=== PATIENT | female | born 1990 | race African-American/Black ===

== ENCOUNTER 2016-12-01 10:34 | Emergency (ER) | payer OTHER ==
--- NOTE | 2016-12-01 10:44 | ER Document Report ---
ED Medical Screen (RME) - General Stated Complaint: PANIC ATTACK Mode of Arrival: Ambulatory Information source: Patient Notes: Patient presents to the emergency department with reports of panic attack. She reports she had a panic attack because of who she was working with. She works at [employer]. Reports history of panic attacks but reports this one was not as bad as she's had it before. Reports her legs are burning. Also feels like her heart is racing. Feels like she could punch co worker in the face but denies SI/HI. I have greeted and performed a rapid initial assessment of this patient. A comprehensive ED assessment and evaluation of the patient, analysis of test results and completion of the medical decision making process will be conducted by additional ED providers. TRAVEL OUTSIDE OF THE [place] IN LAST 30 DAYS: No - Related Data Allergies/Adverse Reactions: haloperidol [From Haldol] Allergy (Verified 02/20/15 20:47) loses time. haloperidol lactate [From Haldol] Allergy (Verified 02/20/15 20:47) loses time. zolpidem tartrate [From Ambien] Adverse Reaction (Verified 02/20/15 20:46) sleep walks Past Medical History Psychiatric Medical History: Reports: Hx Anxiety, Hx Bipolar Disorder, Hx Depression - anxiety, Hx Schizophrenia - Immunizations Immunizations up to date: Yes Hx Diphtheria, Pertussis, Tetanus Vaccination: Yes - unknown Physical Exam - Vital signs Vitals: Temp Pulse Resp BP Pulse Ox 98.1 F 79 20 106/69 99 12/01/16 10:39 12/01/16 10:39 12/01/16 10:39 12/01/16 10:39 12/01/16 10:39 Course - Vital Signs Vital signs: Temp Pulse Resp BP Pulse Ox 98.1 F 79 20 106/69 99 12/01/16 10:39 12/01/16 10:39 12/01/16 10:39 12/01/16 10:39 12/01/16 10:39
--- NOTE | 2016-12-01 11:48 | ER Document Report ---
HPI - HPI Patient complains to provider of: anxiety attack Onset: This afternoon Onset/Duration: Better Pain Level: 3 Context: Patient states that she was at work and got into an argument with another staff member. Patient states that this triggered her to have an anxiety attack. Patient states that she has some leg cramping and became very anxious. Patient states initially she was short of breath. Patient now states that she feels better. Patient is requesting a prescription for something to take for anxiety as she know she has to work with this person in the future. Patient does have a history of anxiety, bipolar and schizophrenia [place] Associated Symptoms: Other - Leg cramping Exacerbated by: Denies Relieved by: Denies Similar symptoms previously: No Recently seen / treated by doctor: Yes - anxiety attack - ROS ROS below otherwise negative: Yes Systems Reviewed and Negative: Yes All other systems reviewed and negative - CONSTITUTIONAL Constitutional: DENIES: Fever, Chills - NEURO Neurology: DENIES: Headache - CARDIOVASCULAR Cardiovascular: DENIES: Chest pain - RESPIRATORY Respiratory: DENIES: Coughing - GASTROINTESTINAL Gastrointestinal: DENIES: Patient vomiting - REPRODUCTIVE Reproductive: DENIES: : - MUSCULOSKELETAL Musculoskeletal: REPORTS: Extremity pain - DERM Skin Color: Normal Skin Problems: None - Leg cramping Past Medical History - General Information source: Patient - Social History Smoking Status: Current Every Day Smoker Chew tobacco use (# tins/day): No Frequency of alcohol use: Occasional Drug Abuse: None Occupation: elementary assistant teacher Family History: Hypertension, Other Patient has suicidal ideation: No Patient has homicidal ideation: No Renal/ Medical History: Denies: Hx Peritoneal Dialysis Psychiatric Medical History: Reports: Hx Anxiety, Hx Bipolar Disorder, Hx Depression - anxiety, Hx Schizophrenia Surgical Hx: Negative - Immunizations Immunizations up to date: Yes Hx Diphtheria, Pertussis, Tetanus Vaccination: Yes - unknown Vertical Provider Document - CONSTITUTIONAL Agree With Documented VS: Yes Exam Limitations: No Limitations General Appearance: WD/WN, No Apparent Distress - INFECTION CONTROL TRAVEL OUTSIDE OF THE [place] IN LAST 30 DAYS: No - HEENT HEENT: Atraumatic, Normal ENT Exam, Normocephalic, PERRLA - NECK Neck: Normal Inspection, Supple - RESPIRATORY Respiratory: Breath Sounds Normal, No Respiratory Distress, Chest Non-Tender O2 Sat by Pulse Oximetry: 99 - CARDIOVASCULAR Cardiovascular: Regular Rate, Regular Rhythm, No Murmur - GI/ABDOMEN Gastrointestinal: Abdomen Soft, Abdomen Non-Tender - BACK Back: Normal Inspection. negative: CVA Tenderness-Right, CVA Tenderness-Left - MUSCULOSKELETAL/EXTREMETIES Musculoskeletal/Extremeties: RICK MATHEW - NEURO Level of Consciousness: Awake, Alert, Appropriate Motor/Sensory: No Motor Deficit - DERM Integumentary: Warm, Dry, No Rash Course - Re-evaluation Re-evalutation: 12/01/[address] Ramey regarding patient's management. Does not advise giving patient a prescription for anxiety medication. Recommends having patient follow up with her primary doctor to address her mental health medications. No concern for PE, DVT or any cardiac pathology at this time. - Vital Signs Vital signs: Temp Pulse Resp BP Pulse Ox 98.1 F 79 20 106/69 99 12/01/16 10:39 12/01/16 10:39 12/01/16 10:39 12/01/16 10:39 12/01/16 10:39 Discharge - Discharge Clinical Impression: Anxiety attack Condition: Stable Disposition: HOME, SELF-CARE Instructions: Anxiety ([facility]) Additional Instructions: Return immediately for any new or worsening symptoms Followup with your primary care provider, call tomorrow to make a followup appointment Follow-up with your mental health provider for recheck. They can adjust your medications or add something for anxiety if needed. Speak with your sort supervisor about scheduling options to minimize interactions with the employee that she had issues with. Forms: Return to Work Referrals: [facility] [Provider Group] - Follow up in 3-5 days
[2016-12-01 12:04] VITALS: BP 97/65
== END 2016-12-01 12:03 | disposition home or self-care (01) ==
LOC: ER 10:34
DX: F41.9 Anxiety disorder, unspecified (principal); F17.200 Nicotine dependence, unspecified, uncomplicated
CPT/HCPCS: 99283

== ENCOUNTER 2017-03-07 17:26 | Emergency (ER) | payer OTHER ==
[2017-03-07 17:32] VITALS: BP 113/69
--- NOTE | 2017-03-07 18:23 | ER Document Report ---
ED Oral Problem - General Chief Complaint: Bleeding Gums Stated Complaint: GUM/MOUTH PAIN Time Seen by Provider: 03/07/17 17:48 Mode of Arrival: Ambulatory Information source: Patient Notes: 27-year-old female presents to ED for dental infection to her gums around tooth #21. Patient states that she called her dentist who put her on amoxicillin for this abscess to her gum. The dentist told her that she needed to go somewhere and get the abscess opened. She states she could not go to the dentist because she did not have dental insurance. She is 6 weeks and goes to the [facility] for the . TRAVEL OUTSIDE OF THE [place] IN LAST 30 DAYS: No - HPI Patient complains to provider of: Jaw pain - All abscess below tooth #21 Onset: Other - Several days getting worse. Onset: Gradual Quality of pain: Achy, Sharp Severity: Mild Pain Level: 1 Associated symptoms: Other - Dental abscess below tooth #21 Relieved by: Nothing Similar symptoms previously: Yes Recently seen / treated by doctor/dentist: No - Related Data Allergies/Adverse Reactions: haloperidol [From Haldol] Allergy (Verified 03/07/17 17:29) loses time. haloperidol lactate [From Haldol] Allergy (Verified 03/07/17 17:29) loses time. zolpidem tartrate [From Ambien] Adverse Reaction (Verified 03/07/17 17:29) sleep walks Past Medical History - General Information source: Patient - Social History Smoking Status: Current Every Day Smoker Cigarette use (# per day): Yes - 2 cigarettes a day Chew tobacco use (# tins/day): No Smoking Education Provided: Yes - Less than 1 minute Frequency of alcohol use: None Drug Abuse: None Lives with: Alone - living in [place] at this time Family History: Hypertension, Other Patient has suicidal ideation: No Patient has homicidal ideation: No - Past Medical History Cardiac Medical History: Reports: None Pulmonary Medical History: Reports: None EENT Medical History: Reports: None Neurological Medical History: Reports: None Endocrine Medical History: Reports: None Renal/ Medical History: Reports: None Malignancy Medical History: Reports: None GI Medical History: Reports: None Musculoskeltal Medical History: Reports None Psychiatric Medical History: Reports: Hx Anxiety, Hx Bipolar Disorder, Hx Depression - anxiety, Hx Schizophrenia Traumatic Medical History: Reports: None Infectious Medical History: Reports: None Surgical Hx: Negative Past Surgical History: Reports: None - Immunizations Immunizations up to date: Yes Hx Diphtheria, Pertussis, Tetanus Vaccination: Yes - unknown Review of Systems - Review of Systems Constitutional: No symptoms reported EENT: No symptoms reported, Dental problem - small dental abscess Cardiovascular: No symptoms reported Respiratory: No symptoms reported Gastrointestinal: No symptoms reported Genitourinary: No symptoms reported Female Genitourinary: No symptoms reported Musculoskeletal: No symptoms reported Skin: No symptoms reported Hematologic/Lymphatic: No symptoms reported Neurological/Psychological: No symptoms reported Physical Exam - Vital signs Vitals: Temp Pulse Resp BP Pulse Ox 98 F 89 16 113/69 98 03/07/17 17:29 03/07/17 17:29 03/07/17 17:29 03/07/17 17:03/07/17 17:29 Interpretation: Normal - General General appearance: Appears well, Alert - HEENT Head: Normocephalic, Atraumatic Eyes: Normal Pupils: PERRL Ears: Normal External canal: Normal Tympanic membrane: Normal Sinus: Normal Nasal: Normal Mouth/Lips: Normal Mucous membranes: Normal Teeth diagram: 1 - Small dental abscess Pharynx: Normal Neck: Normal - Respiratory Respiratory status: No respiratory distress Chest status: Nontender Breath sounds: Normal Chest palpation: Normal - Cardiovascular Rhythm: Regular Heart sounds: Normal auscultation Murmur: No - Abdominal Inspection: Normal Distension: No distension Bowel sounds: Normal Tenderness: Nontender Organomegaly: No organomegaly - Back Back: Normal, Nontender - Extremities General upper extremity: Normal inspection, Nontender, Normal color, Normal ROM , Normal temperature General lower extremity: Normal inspection, Nontender, Normal color, Normal ROM , Normal temperature, Normal weight bearing. No: Jose Luis's sign - Neurological Neuro grossly intact: Yes Cognition: Normal Orientation: AAOx4 Luís Coma Scale Eye Opening: Spontaneous [place] Coma Scale Verbal: Oriented [place] Coma Scale Motor: Obeys Commands Luís Coma Scale Total: 15 Speech: Normal Motor strength normal: LUE, RUE, LLE, RLE Sensory: Normal - Psychological Associated symptoms: Normal affect, Normal mood - Skin Skin Temperature: Warm Skin Moisture: Dry Skin Color: Normal Course - Vital Signs Vital signs: Temp Pulse Resp BP Pulse Ox 98 F 89 16 113/69 98 03/07/17 17:29 03/07/17 17:29 03/07/17 17:29 03/07/17 17:29 03/07/17 17:29 Procedures - Incision and Drainage Left gum Type: Simple Anesthetic type: Other mL's of anesthetic: 0 Blade size: Other Incision Method: Incision made with needle Amount/type of drainage: moderate Discharge - Discharge Clinical Impression: Dental abscess Condition: Stable Disposition: HOME, SELF-CARE Additional Instructions: ABSCESS: You have an abscess (boil). This a pus-forming infection, usually due to staph. Some boils may be left to drain on their own, but most require lancing. From the time the tender lump first appears, it may be three or four days before the abscess is ready to shaan. Local heat and rest help at this stage of treatment. An antibiotic may prevent spread of the infection. Once the abscess is opened, packing may be placed into it. This is done so pus is not sealed inside by premature closure of the cavity. The packing will be removed at your follow-up visit or you may be advised to remove it yourself at home. Sometimes this packing must be replaced a few times during healing. The wound will heal with surprisingly little scar. Depending on the size and location of an abscess, healing can take one to four weeks. You may shower and wash the area around the incision site two or three times a day. Antibiotics may be prescribed, but are usually not necessary after an abscess has been drained. If you develop fever, chills, worsening pain, or increasing swelling in the area, call the doctor or return immediately. Dental abscess was opened up with an 18-gauge needle and drained. You have garbled several times with water. When you go home I would like for you to gargle with warm salt water 3 times a day for the next several days to ensure this heals up. Take the amoxicillin your dentist well to until it is completed. Follow-up with your [facility] PHYSIC[facility] at [facility] as scheduled. FOLLOW-UP CARE: Most simple abscesses will not require a follow up visit. If you had packing placed in the abscess, remove it as instructed by the physician. If you have been referred to a physician for follow-up care, call the physicians office for an appointment as you were instructed or within the next two days. If you experience worsening or a significant change in your symptoms, return to the Emergency Department at any time for re-evaluation.
== END 2017-03-07 18:38 | disposition home or self-care (01) ==
LOC: ER 17:26
PROC: 0C96XZZ Drainage of Lower Gingiva, External Approach (ICD-10-PCS; principal; 2017-03-07)
DX: O99.611 Diseases of the digestive system complicating pregnancy, first trimester (principal); K04.7 Periapical abscess without sinus; O99.331 Smoking (tobacco) complicating pregnancy, first trimester; F17.210 Nicotine dependence, cigarettes, uncomplicated; Z71.6 Tobacco abuse counseling; Z3A.01 Less than 8 weeks gestation of pregnancy; Z88.8 Allergy status to other drugs, medicaments and biological substances
CPT/HCPCS: 99282

== ENCOUNTER 2017-03-27 18:49 | Emergency (ER) | payer OTHER ==
--- NOTE | 2017-03-27 19:33 | ER Document Report ---
ED Medical Screen (RME) - General Chief Complaint: Vag Bleeding, +preg <12wks Stated Complaint: ABDOMINAL PAIN Time Seen by Provider: 03/27/17 19:28 Notes: Patient presents stating that she is having vaginal bleeding. She states she has had this for 2 days. She states she went to the [facility] 2 days ago when she was having the bleeding and cramping and they told her she may be having a miscarriage. She states that she was confused about what she was told and was unsure whether she was having a miscarriage or not. Patient states the bleeding has become heavier with clots. She also states that the cramping has become worse. She states that she does have chronically low blood pressure. She states this is her first . He said a urine test at the [facility] was negative but then when they did a serum test it was positive. She states she is not sure what the ultrasound at the [facility] showed but she does remember some mention of a yolk sac. TRAVEL OUTSIDE OF THE [place] IN LAST 30 DAYS: No - Related Data Allergies/Adverse Reactions: haloperidol [From Haldol] Allergy (Verified 03/07/17 17:29) loses time. haloperidol lactate [From Haldol] Allergy (Verified 03/07/17 17:29) loses time. zolpidem tartrate [From Ambien] Adverse Reaction (Verified 03/07/17 17:29) sleep walks Past Medical History Renal/ Medical History: Denies: Hx Peritoneal Dialysis Psychiatric Medical History: Reports: Hx Anxiety, Hx Bipolar Disorder, Hx Depression - anxiety, Hx Schizophrenia Surgical Hx: Negative - Immunizations Immunizations up to date: Yes Hx Diphtheria, Pertussis, Tetanus Vaccination: Yes - unknown Physical Exam - Vital signs Vitals: Temp Pulse Resp BP Pulse Ox 98.3 F 94 16 98/72 L 98 03/27/17 18:58 03/27/17 18:58 03/27/17 18:58 03/27/17 18:58 03/27/17 18:58 Course - Vital Signs Vital signs: Temp Pulse Resp BP Pulse Ox 98.3 F 94 16 98/72 L 98 03/27/17 18:58 03/27/17 18:58 03/27/17 18:58 03/27/17 18:58 03/27/17 18:58
[2017-03-27 20:16] LABS: ABSOLUTE BASOPHILS # (AUTO) 0.1 10^3/uL (0.0-0.2); ABSOLUTE EOSINOPHILS # (AUTO) 0.1 10^3/uL (0.0-0.6); ABSOLUTE LYMPHOCYTES (AUTO) 1.8 10^3/uL (0.5-4.7); ABSOLUTE MONOCYTES (AUTO) 0.8 10^3/uL (0.1-1.4); ABSOLUTE NEUT (AUTO) 9.5 10^3/uL (1.7-8.2); BASOPHILS % (AUTO) 0.6 % (0-2); EOSINOPHILS % (AUTO) 0.7 % (0-6); HEMATOCRIT 39.5 % (36.0-47.0); HEMOGLOBIN 12.6 g/dL (12.0-15.5); HGB HCT DIFFERENCE -1.7; LYMPHOCYTES % (AUTO) 14.8 % (13-45); MEAN CORPUSCULAR HEMOGLOBIN 24.6 pg (27.0-33.4); MEAN CORPUSCULAR VOLUME 77 fl (80-97); MONOCYTES % (AUTO) 6.7 % (3-13); RED BLOOD COUNT 5.14 10^6/uL (3.72-5.28); SEGMENTED NEUTROPHILS % (AUTO) 77.2 % (42-78); WHITE BLOOD COUNT 12.3 10^3/uL (4.0-10.5)
[2017-03-27 20:33] LABS: ALANINE AMINOTRANSFERASE 36 U/L (9-52); ALBUMIN 4.1 g/dL (3.5-5.0); ALKALINE PHOSPHATASE 76 U/L (38-126); ANION GAP 9 (5-19); ASPARTATE AMINO TRANSFERASE 26 U/L (14-36); BILIRUBIN,DIRECT 0.2 mg/dL (0.0-0.4); BILIRUBIN,TOTAL 0.3 mg/dL (0.2-1.3); BLOOD UREA NITROGEN 9 mg/dL (7-20); CALCIUM 9.2 mg/dL (8.4-10.2); CARBON DIOXIDE 27 mmol/L (22-30); CHLORIDE 102 mmol/L (98-107); CREATININE RESULT 0.83 mg/dL (0.52-1.25); GLUCOSE 115 mg/dL (75-110); POTASSIUM 4.1 mmol/L (3.6-5.0); TOTAL PROTEIN 7.2 g/dL (6.3-8.2)
--- NOTE | 2017-03-27 20:36 | ER Document Report ---
ED General - General Chief Complaint: Vag Bleeding, +preg <12wks Stated Complaint: ABDOMINAL PAIN Time Seen by Provider: 03/27/17 19:28 Notes: Patient is a 27-year-old female at approximately 9 weeks by LMP who presents with vaginal bleeding and lower abdominal cramping. Patient describes lower abdominal cramping is mild, intermittent. Nothing improves or worsens that pain. The pain has been present for the past 2-3 days. Notes that she has had a small amount of vaginal spotting during that time. 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 She denies any fever or constitutional symptoms. No vomiting although she has been nauseated. TRAVEL OUTSIDE OF THE [place] IN LAST 30 DAYS: No - Related Data Allergies/Adverse Reactions: haloperidol [From Haldol] Allergy (Verified 03/07/17 17:29) loses time. haloperidol lactate [From Haldol] Allergy (Verified 03/07/17 17:29) loses time. zolpidem tartrate [From Ambien] Adverse Reaction (Verified 03/07/17 17:29) sleep walks Past Medical History - General Information source: Patient - Social History Smoking Status: Never Smoker Frequency of alcohol use: None Drug Abuse: None Lives with: Family Family History: Reviewed & Not Pertinent, Hypertension, Other Patient has suicidal ideation: No Patient has homicidal ideation: No Renal/ Medical History: Denies: Hx Peritoneal Dialysis Psychiatric Medical History: Reports: Hx Anxiety, Hx Bipolar Disorder, Hx Depression - anxiety, Hx Schizophrenia Surgical Hx: Negative - Immunizations Immunizations up to date: Yes Hx Diphtheria, Pertussis, Tetanus Vaccination: Yes - unknown Review of Systems - Review of Systems Notes: Constitutional: Negative for fever. HENT: Negative for sore throat. Eyes: Negative for visual changes. Cardiovascular: Negative for chest pain. Respiratory: Negative for shortness of breath. Gastrointestinal: Positive for lower abdominal cramping and nausea Genitourinary: Negative for dysuria. Positive for vaginal bleeding Musculoskeletal: Negative for back pain. Skin: Negative for rash. Neurological: Negative for headaches, weakness or numbness. 10 point ROS negative except as marked above and in HPI. Physical Exam - Vital signs Vitals: Temp Pulse Resp BP Pulse Ox 98.3 F 94 16 98/72 L 98 03/27/17 18:58 03/27/17 18:58 03/27/17 18:58 03/27/17 18:58 03/27/17 18:58 Interpretation: Normal Notes: PHYSICAL EXAMINATION: GENERAL: Well-appearing, well-nourished and in no acute distress. HEAD: Atraumatic, normocephalic. EYES: Pupils equal round and reactive to light, extraocular movements intact, sclera anicteric, conjunctiva are normal. ENT: nares patent, oropharynx clear without exudates. Moist mucous membranes. NECK: Normal range of motion, supple without lymphadenopathy LUNGS: Breath sounds clear to auscultation bilaterally and equal. No wheezes rales or rhonchi. HEART: Regular rate and rhythm without murmurs ABDOMEN: Soft, nontender, normoactive bowel sounds. No guarding, no rebound. No masses appreciated. EXTREMITIES: Normal range of motion, no pitting or edema. No cyanosis. NEUROLOGICAL: No focal neurological deficits. Moves all extremities spontaneously and on command. PSYCH: Normal mood, normal affect. SKIN: Warm, Dry, normal turgor, no rashes or lesions noted. Course - Re-evaluation Re-evalutation: 03/27/17 20:36 Patient presents with a mild amount of vaginal bleeding in the setting of an early first trimester . Transvaginal ultrasound is unable to visualize an intrauterine at this time although possible gestational sac. Quantitative beta hCG below the zone of to margination. No active bleeding at time of presentation. She is Rh positive. Patient's abdominal exam is otherwise benign without any focal tenderness. I do not suspect an acute appendicitis, pyelonephritis, cystitis, or bowel obstruction. At this time I have informed the patient that she needs to return to the emergency department or the women's clinic in 48 hours for recheck of her quantitative beta hCG to assess whether or not this is a normal or a possible ectopic .At this time will discharge with return precautions and follow -up recommendations. Verbal discharge instructions given a the bedside and opportunity for questions given. Medication warnings reviewed. Patient is in agreement with this plan and has verbalized understanding of return precautions and the need for primary care follow-up in the next 24-72 hours. - Vital Signs Vital signs: Temp Pulse Resp BP Pulse Ox 97.5 F 68 14 103/66 99 03/28/17 00:19 03/28/17 00:19 03/28/17 00:19 03/28/17 00:19 03/28/17 00:19 - Laboratory Result Diagrams: 03/27/17 19:40 03/27/17 19:40 Laboratory results interpreted by me: 03/27/17 03/27/17 19:40 19:40 WBC 12.3 H MCV 77 L MCH 24.6 L RDW 15.0 H Absolute Neutrophils 9.5 H Glucose 115 H Beta HCG, Quant 939.84 H - Diagnostic Test Radiology reviewed: Reports reviewed Discharge - Discharge Clinical Impression: First trimester bleeding Condition: Good Disposition: HOME, SELF-CARE Additional Instructions: You need to return to the ED or the women's health clinic in 48 hours for a recheck of your hormone level. The ultrasound is unable to see a fetus at this time because you are too early in your . Please return if you develop severe abdominal pain, bleeding that goes through more than 2 pads for more than 2 hours, pass out, or have any other symptoms that are concerning to you. Please follow-up closely with your OBGYN regarding todays visit.
--- NOTE | 2017-03-27 23:26 | RADIOLOGY REPORT (SQ) ---
EXAM DESCRIPTION: U/S OB TRANSVAGINAL W/O DOP COMPLETED DATE/TIME: 03/27/2017 10:32 pm REASON FOR STUDY: preg bleed, no iup bedside transab COMPARISON: None. TECHNIQUE: Transvaginal static and realtime grayscale images acquired of the pelvis. Additional killian cted spectral and color Doppler images recorded. All images stored on PACs. [email or web address] LIMITATIONS: None. FINDINGS: FETUS: Living intrauterine . EGA: Questionable gestational sac seen within the endometrium with a mean diameter is 0.72cm consist ent with a of 5 weeks and 3 days. Alternatively this could represent a pseudo gestational sac fluid. YANETH: 11/24/2017 FHR: Not applicable. SUBCHORIONIC BLEED: No. SIZE OF BLEED: Not applicable. UTERUS: No masses. No anomalies. CERVICAL LENGTH: Not done RIGHT ADNEXA: Normal ovary with normal vascular flow. No adnexal free fluid. No adnexal masses. LEFT ADNEXA: Normal ovary with normal vascular flow. Possible cortical cyst luteal cyst measuring 1. 1 x 1.6 x 1.0 cm No adnexal free fluid. No adnexal masses. FREE FLUID: None. OTHER: No other significant finding. IMPRESSION: Possible gestational sac seen measuring 0.72 cm. This could also represent a pseudo ges tational sac and free fluid within the uterine cavity. No evidence of ectopic on ultrasoun d. Continued follow-up is recommended with serial beta HCG and repeat ultrasound as necessary. EGA 5 weeks 3 days based on presumed gestational sac. Possible left corpus luteal cyst. Trimester of : First - 0 to 13 weeks. TECHNICAL DOCUMENTATION: JOB ID: [id number]- All Rights Reserved
[2017-03-28 03:06] VITALS: BP 104/67
== END 2017-03-28 00:24 | disposition home or self-care (01) ==
LOC: ER 18:49
DX: O46.91 Antepartum hemorrhage, unspecified, first trimester (principal); Z3A.09 9 weeks gestation of pregnancy; R10.9 Unspecified abdominal pain
CPT/HCPCS: 36415; 76817; 80053; 84702; 85025; 86900; 86901; 99284

== ENCOUNTER 2017-07-05 13:47 | Emergency (ER) | payer OTHER ==
--- NOTE | 2017-07-05 14:27 | ER Document Report ---
HPI - HPI Pain Level: 1 Notes: Patient is a P0 who presents to the ED complaining of vaginal bleeding 1 day. H/o 1 miscarriage about 3-4 months ago. Patient states that this may be the start of her menstrual cycle (as she is regular), but she is using a cup for the first time in lieu of tampons or pads. Patient states that she overflowed the cup this morning after having eaten all night, and switched out twice yesterday. Patient is concerned that this might be too much than what it should be. Patient has no other concerns or complaints at this time. She has not been seen by an CEMENTER MACHINE. She denies any history of clots, bleeding disorder. No other significant PMH per patient. Pt is not on any hormones or control medications. Patient admits to smoking 5-10 cigarettes a day but denies any IV drug use. Denies any headache, fever, URI, sore throat, chest pain, palpitations, syncope, cough, shortness of breath, wheeze, dyspnea, abdominal pain, nausea/vomiting/diarrhea, urinary retention, dysuria, hematuria , or rash. - ROS Notes: REVIEW OF SYSTEMS: CONSTITUTIONAL : Denies fever, chills, or sweats. Denies recent illness. EENT: Denies eye, ear, throat, or mouth pain or symptoms. Denies nasal or sinus congestion or discharge. Denies throat, tongue, or mouth swelling or difficulty swallowing. CARDIOVASCULAR: Denies chest pain. Denies palpitations or racing or irregular heart beat. Denies ankle edema. RESPIRATORY: Denies cough, cold, or chest congestion. Denies shortness of breath, difficulty breathing, or wheezing. GASTROINTESTINAL: Denies abdominal pain or distention. Denies nausea, vomiting , or diarrhea. Denies blood in vomitus, stools, or per rectum. Denies black, tarry stools. Denies constipation. GENITOURINARY: Denies difficulty urinating, painful urination, burning, frequency, blood in urine, or discharge. FEMALE GENITOURINARY: see hpi MUSCULOSKELETAL: Denies back or neck pain or stiffness. Denies joint pain or swelling. SKIN: Denies rash, lesions or sores. NEUROLOGICAL: Denies confusion or altered mental status. Denies passing out or loss of consciousness. Denies dizziness or lightheadedness. Denies headache. Denies weakness or paralysis or loss of use of either side. Denies problems with gait or speech. Denies sensory loss, numbness, or tingling. ALL OTHER SYSTEMS REVIEWED AND NEGATIVE. Dictation was performed using [employer] voice recognition software - REPRODUCTIVE LMP: now Reproductive: DENIES: : - DERM Skin Color: Normal Past Medical History - Social History Smoking Status: Current Every Day Smoker Family History: Reviewed & Not Pertinent, Hypertension, Other Patient has suicidal ideation: No Patient has homicidal ideation: No Renal/ Medical History: Denies: Hx Peritoneal Dialysis Psychiatric Medical History: Reports: Hx Anxiety, Hx Bipolar Disorder, Hx Depression - anxiety, Hx Schizophrenia - Immunizations Immunizations up to date: Yes Hx Diphtheria, Pertussis, Tetanus Vaccination: Yes - unknown Vertical Provider Document - CONSTITUTIONAL Agree With Documented VS: Yes Notes: PHYSICAL EXAMINATION: GENERAL: Well-appearing, well-nourished and in no acute distress. A&Ox4 LUNGS: Breath sounds clear to auscultation bilaterally and equal. No wheezes rales or rhonchi. HEART: Regular rate and rhythm without murmurs, rubs, gallops. ABDOMEN: Soft, nontender, nondistended abdomen. No guarding, no rebound. No masses appreciated. Normal bowel sounds present. No CVA tenderness bilaterally. : deferred Musculoskeletal: FROM to passive/active. Strength 5+/5. Extremities: No cyanosis, clubbing, or edema b/l. Peripheral pulses 2+. Capillary refill less than 3 seconds. NEUROLOGICAL: Normal speech, normal gait. Normal sensory, motor exams PSYCH: Normal mood, normal affect. SKIN: Warm, Dry, normal turgor, no rashes or lesions noted. - INFECTION CONTROL TRAVEL OUTSIDE OF THE [place] IN LAST 30 DAYS: No - RESPIRATORY O2 Sat by Pulse Oximetry: 99 Course - Re-evaluation Re-evalutation: 07/05/17 15:24 Patient is a 27-year-old female who is afebrile and well-hydrated who presents to the ED with what could be typical menstrual bleeding versus dysfunctional uterine bleeding. Vitals are stable. PE is otherwise unremarkable at this time. CBC was unremarkable and she had a negative serum . Patient is utilizing a cup for the first time during her menstrual cycle and was surprised that how much blood there was which made her nervous. Reviewed with patient that this could be typical and that bleeding varies from person to person and from cycle to cycle. No suspicion for any systemic emergent condition at this time. Patient aware to monitor symptoms for any acute changes and seek medical attention if so. Recheck with your PCM in 3-5 days. Consider further evaluation and management with CEMENTER MACHINE with the information provided. Return to the ED with any worsening/concerning symptoms otherwise as reviewed in discharge. Patient is in agreement. - Vital Signs Vital signs: Temp Pulse Resp BP Pulse Ox 98.2 F 96 16 108/80 99 07/05/17 13:57 07/05/17 13:57 07/05/17 13:57 07/05/17 13:57 07/05/17 13:57 - Laboratory Result Diagrams: 07/05/17 14:38 Discharge - Discharge Clinical Impression: Dysfunctional uterine bleeding Condition: Stable Disposition: HOME, SELF-CARE Instructions: Dysfunctional Uterine Bleeding ([facility]) Additional Instructions: He was seen today for vaginal bleeding which may be related to a typical menstrual cycle versus dysfunctional uterine bleeding Your test was negative and you are not severely anemic with normal platelet level Monitor for any worsening symptoms Maintain adequate fluid intake Recheck with your PCM in 3-5 days Schedule an appointment with an CEMENTER MACHINE/women's clinic for further evaluation and management Return to the ED with any worsening symptoms and/or development of fever, headache, chest pain, palpitations, syncope, shortness of breath, trouble breathing, abdominal pain, n/v/d, blood in stool/urine, or other worsening symptoms that are concerning to you. Referrals: [facility] [Provider Group] - Follow up as needed DEL TOLEDO MD [ACTIVE STAFF] - Follow up as needed
[2017-07-05 14:49] LABS: ABSOLUTE BASOPHILS # (AUTO) 0.1 10^3/uL (0.0-0.2); ABSOLUTE EOSINOPHILS # (AUTO) 0.2 10^3/uL (0.0-0.6); ABSOLUTE MONOCYTES (AUTO) 0.6 10^3/uL (0.1-1.4); ABSOLUTE NEUT (AUTO) 5.5 10^3/uL (1.7-8.2); BASOPHILS % (AUTO) 1.3 % (0-2); EOSINOPHILS % (AUTO) 1.8 % (0-6); HEMATOCRIT 37.9 % (36.0-47.0); HEMOGLOBIN 12.6 g/dL (12.0-15.5); HGB HCT DIFFERENCE -0.1; LYMPHOCYTES % (AUTO) 23.6 % (13-45); MEAN CORPUSCULAR HEMOGLOBIN 25.3 pg (27.0-33.4); MEAN CORPUSCULAR HGB CONC 33.4 g/dL (32.0-36.0); MEAN CORPUSCULAR VOLUME 76 fl (80-97); MONOCYTES % (AUTO) 7.2 % (3-13); RED CELL DISTRIBUTION WIDTH 13.3 % (11.5-14.0); SEGMENTED NEUTROPHILS % (AUTO) 66.1 % (42-78); WHITE BLOOD COUNT 8.3 10^3/uL (4.0-10.5)
[2017-07-05 15:37] VITALS: BP 109/73
== END 2017-07-05 15:37 | disposition home or self-care (01) ==
LOC: ER 13:47
DX: N93.8 Other specified abnormal uterine and vaginal bleeding (principal); F17.210 Nicotine dependence, cigarettes, uncomplicated; Z87.59 Personal history of other complications of pregnancy, childbirth and the puerperium
CPT/HCPCS: 36415; 84702; 85025; 99284

== ENCOUNTER 2017-08-31 12:19 | Emergency (ER) | payer OTHER ==
[2017-08-31 12:36] VITALS: BP 118/75
[2017-08-31] MEDS ORDERED: IBUPROFEN 800 MG TABLET PO ONE (13:34)
--- NOTE | 2017-08-31 13:39 | ER Document Report ---
ED Extremity Problem, Lower - General Chief Complaint: Knee Injury Stated Complaint: KNEE PAIN Time Seen by Provider: 08/31/17 13:23 Mode of Arrival: Wheelchair Information source: Patient Notes: 27-year-old girl presents to ED for complaint of her right knee began popped out. She states she has a "trick knee ". She states she cannot walk on this leg at this time. She states she was dancing around and the knee just popped out. She states she has not had anything for pain yet. TRAVEL OUTSIDE OF THE [place] IN LAST 30 DAYS: No - HPI Patient complains to provider of: Pain, Swelling Location: Knee Occurred: This afternoon Where: Home Onset/Duration: Sudden Quality of pain: Achy, Sharp Severity: Moderate Pain Level: 3 Context: Wearing shoes Recent injury: Possibly Associated symptoms: Other Exacerbated by: Movement, Walking Relieved by: Nothing - Related Data Allergies/Adverse Reactions: haloperidol [From Haldol] Allergy (Verified 08/31/17 12:20) loses time. haloperidol lactate [From Haldol] Allergy (Verified 08/31/17 12:20) loses time. zolpidem tartrate [From Ambien] Adverse Reaction (Verified 08/31/17 12:20) sleep walks Past Medical History - General Information source: Patient - Social History Smoking Status: Current Every Day Smoker Cigarette use (# per day): Yes Chew tobacco use (# tins/day): No Smoking Education Provided: Yes - 3 min Frequency of alcohol use: Heavy Drug Abuse: None Occupation: none Lives with: Alone Family History: Arthritis, DM, Hyperlipidemia, Hypertension, Other. denies: CAD , COPD, CVA, Malignancy, Thyroid Disfunction Patient has suicidal ideation: No Patient has homicidal ideation: No - Past Medical History Cardiac Medical History: Reports: None Pulmonary Medical History: Reports: None EENT Medical History: Reports: None Neurological Medical History: Reports: None Endocrine Medical History: Reports: None Renal/ Medical History: Reports: None. Denies: Hx Peritoneal Dialysis Malignancy Medical History: Reports: None GI Medical History: Reports: None Musculoskeltal Medical History: Reports Hx Musculoskeletal Deformity Skin Medical History: Reports None Psychiatric Medical History: Reports: Hx Anxiety, Hx Bipolar Disorder, Hx Depression, Hx Post Traumatic Stress Disorder, Hx Schizophrenia Traumatic Medical History: Reports: None Infectious Medical History: Reports: None Surgical Hx: Negative Past Surgical History: Reports: None - Immunizations Immunizations up to date: Yes Hx Diphtheria, Pertussis, Tetanus Vaccination: Yes - unknown Review of Systems - Review of Systems Constitutional: No symptoms reported EENT: No symptoms reported Cardiovascular: No symptoms reported Respiratory: No symptoms reported Gastrointestinal: No symptoms reported Genitourinary: No symptoms reported Female Genitourinary: No symptoms reported Musculoskeletal: Joint pain - right. denies: Joint swelling Skin: No symptoms reported Hematologic/Lymphatic: No symptoms reported Neurological/Psychological: No symptoms reported Physical Exam - Vital signs Vitals: Temp Pulse Resp BP Pulse Ox 98.3 F 97 16 118/75 98 08/31/17 12:35 08/31/17 12:35 08/31/17 12:35 08/31/17 12:35 08/31/17 12:35 Interpretation: Normal - General General appearance: Appears well, Alert - HEENT Head: Normocephalic, Atraumatic Eyes: Normal Pupils: PERRL - Respiratory Respiratory status: No respiratory distress Chest status: Nontender Breath sounds: Normal Chest palpation: Normal - Cardiovascular Rhythm: Regular Heart sounds: Normal auscultation Murmur: No - Abdominal Inspection: Normal Distension: No distension Bowel sounds: Normal Tenderness: Nontender Organomegaly: No organomegaly - Back Back: Normal, Nontender - Extremities General upper extremity: Normal inspection, Nontender, Normal color, Normal ROM , Normal temperature General lower extremity: Normal inspection, Normal color, Normal temperature. No: Jose Luis's sign Knee: Tender, Pain with ROM, Patellar tendon intact, Tender joint line, Unable to bear weight. No: Abrasion, Deformity, Dislocation, Drawer's test instability , Ecchymosis, Instability, Joint effusion, Laceration, Laxity with valgus stress , Laxity with varus stress, Popliteal fossa tender - Neurological Neuro grossly intact: Yes Cognition: Normal Orientation: AAOx4 Hayes Coma Scale Eye Opening: Spontaneous Luís Coma Scale Verbal: Oriented Hayes Coma Scale Motor: Obeys Commands Luís Coma Scale Total: 15 Speech: Normal Motor strength normal: LUE, RUE, LLE, RLE Sensory: Normal - Psychological Associated symptoms: Normal affect, Normal mood - Skin Skin Temperature: Warm Skin Moisture: Dry Skin Color: Normal Course - Re-evaluation Re-evalutation: 08/31/17 21:29 Patient was discharged in 1413 after receiving a knee immobilizer and crutches for her knee pain. X-rays were discussed with patient and written reports given to patient follow-up with orthopedics. - Vital Signs Vital signs: Temp Pulse Resp BP Pulse Ox 98.3 F 97 16 118/75 98 08/31/17 12:35 08/31/17 12:35 08/31/17 12:35 08/31/17 12:35 08/31/17 12:35 - Diagnostic Test Radiology reviewed: Image reviewed, Reports reviewed Procedures - Immobilization Right Knee Time completed: 14:15 Immobilizer type: Crutches, Knee immobilizer Performed by: PCT Post-Proc Neuro Vasc Exam: Normal Alignment checked and good: Yes Discharge - Discharge Clinical Impression: Knee pain, acute Qualifiers: Laterality: right Qualified Code(s): M25.561 - Pain in right knee Condition: Stable Disposition: HOME, SELF-CARE Additional Instructions: SUSPECTED INTERNAL KNEE INJURY: The examiner of your injured knee suspects an internal injury to the cartilage or internal ligaments. This must be further investigated by an crisis intervention specialist. The knee should be protected, ice packed, and elevated while awaiting your follow-up exam by the orthopedist. If there is severe swelling, severe pain, or any new symptoms while awaiting your exam, you should call the orthopedist. (If he/she is unavailable, call us or return for re-examination.) KNEE IMMOBILIZING SPLINT: The knee immobilizing splint will protect the injury while healing begins. This type of splint does not allow the knee to bend at all. No running or sports will be possible. If the splint allows painfree walking, it's giving adequate protection. If there is still significant pain, crutches may be needed as well. Don't do anything that hurts. Adjusted the splint, if necessary. The stiffeners on the sides are attached with Velcro, so they can be easily moved to adjust for thigh and calf size. If you need help with these adjustments, come back. You will lose muscle strength in the thigh while using this splint. The doctor will advise you if it's safe to do isometric knee exercises while you use it. USE OF CRUTCHES: The doctor has recommended that you not bear weight at this time. You will need to use crutches. Adjust the crutches so the tops come to about two inches under the armpit while you are standing upright. Use your hands -- not your armpits -- to support your weight. To get into a chair, support yourself with one crutch on the injured side. Hold the chair with the other hand, then lower yourself while putting all your weight on the good leg. Going up stairs is `good leg up, step up, then bring up crutches and bad leg.' Down stairs is `bad leg and crutches down, then bring good leg down.' If you develop numbness or swelling in an arm or hand, you are using the crutches incorrectly. Return if you are having any problems with the crutches. ICE & ELEVATION: Apply ice packs frequently against the painful area. Many different schedules are recommended, such as "20 minutes on, 20 minutes off" or "one hour ice, two hours rest." If you need to work, you may need to go longer between ice treatments. You should plan to have the area ice packed AT LEAST one- fourth of the time. The ice should be applied over the wrap, tape, or splint, or over a layer of cloth -- not directly against the skin. Some ice bags have a built-in cloth and can be put directly on the skin. Your injured part should be elevated as much as possible over the next 48 hours. Try to keep the injury above the level of the heart. Avoid use of the injured area. Elevation and rest will decrease the swelling. USE OF [id number] IBUPROFEN: Ibuprofen (Advil, Nuprin, Medipren, Motrin IB) is a medication for fever and pain control. In addition, it has anti- inflammatory effects which may be beneficial, especially in the treatment of injuries. It's best to take ibuprofen with food. Persons with ulcer disease or allergy to aspirin should notify their physician of this before taking ibuprofen. Ibuprofen can be given every four to six hours, for a total of four doses daily. Age Pain or fever dose Antiinflammatory dose 6-8 yr 200 mg (1 tab) 200 mg (1 tab) 9-11 yr 200 mg (1 tab) 200-400 mg (1-2 tab) 11-14 yr 200-400 mg (1-2 tab) 400 mg (2 tab) 15-adult 400 mg (2 tab) 600 mg (3 tab) FOLLOW-UP CARE: If you have been referred to a physician for follow-up care, call the physician s office for an appointment as you were instructed or within the next two days. If you experience worsening or a significant change in your symptoms, notify the physician immediately or return to the Emergency Department at any time for re-evaluation. Forms: Smoking Cessation Education Referrals: WYATT GREGORIO DO [ACTIVE STAFF] - Follow up as needed
--- NOTE | 2017-08-31 13:57 | RADIOLOGY REPORT (SQ) ---
EXAM DESCRIPTION: KNEE RIGHT 4 VIEWS COMPLETED DATE/TIME: 08/31/2017 1:49 pm REASON FOR STUDY: pain states Has "Trick Knee" COMPARISON: None. NUMBER OF VIEWS: Four views. TECHNIQUE: AP, lateral, and both oblique radiographic images acquired of the right knee. LIMITATIONS: None. FINDINGS: MINERALIZATION: Normal. BONES: No acute fracture or dislocation. No worrisome bone lesions. JOINT: No effusion. SOFT TISSUES: No soft tissue swelling. No radio-opaque foreign body. OTHER: No other significant finding. IMPRESSION: NEGATIVE STUDY OF THE RIGHT KNEE. NO RADIOGRAPHIC EVIDENCE OF ACUTE INJURY. TECHNICAL DOCUMENTATION: JOB ID: [id number] [employer]- All Rights Reserved
== END 2017-08-31 14:20 | disposition home or self-care (01) ==
LOC: ER 12:19
DX: M25.561 Pain in right knee (principal); F17.210 Nicotine dependence, cigarettes, uncomplicated; Z71.6 Tobacco abuse counseling; Z88.8 Allergy status to other drugs, medicaments and biological substances
CPT/HCPCS: 99283; 73564; L1830

== ENCOUNTER 2018-01-10 17:17 | Emergency (ER) | payer OTHER ==
--- NOTE | 2018-01-10 18:00 | ER Document Report ---
ED Medical Screen (RME) - General Chief Complaint: Psych Problem Stated Complaint: BODY PAIN, FEVER,HALLUCINATIONS,CHILLS Time Seen by Provider: 01/10/18 17:54 Notes: 28-year-old schizophrenic patient comes emergency room complaining of back pain , possible fevers chills and worsening visual and auditory hallucinations. She has been off her medications for a few days now. She states that she has run out of her medication and cannot afford to go see her doctors over at [facility]. Her chart indicates she has retired so social service consult may be needed to sort out what her healthcare coverage is at this time. I have greeted and performed a rapid initial assessment of this patient. A comprehensive ED assessment and evaluation of the patient, analysis of test results and completion of the medical decision making process will be conducted by additional ED providers. TRAVEL OUTSIDE OF THE [place] IN LAST 30 DAYS: No - Related Data Allergies/Adverse Reactions: haloperidol [From Haldol] Allergy (Verified 01/10/18 17:53) loses time. haloperidol lactate [From Haldol] Allergy (Verified 01/10/18 17:53) loses time. zolpidem tartrate [From Ambien] Adverse Reaction (Verified 01/10/18 17:53) sleep walks Past Medical History - Social History Chew tobacco use (# tins/day): No Frequency of alcohol use: None Drug Abuse: None Renal/ Medical History: Denies: Hx Peritoneal Dialysis Musculoskeltal Medical History: Reports Hx Musculoskeletal Deformity Psychiatric Medical History: Reports: Hx Anxiety, Hx Bipolar Disorder, Hx Depression, Hx Post Traumatic Stress Disorder, Hx Schizophrenia - Immunizations Immunizations up to date: Yes Hx Diphtheria, Pertussis, Tetanus Vaccination: Yes - unknown History of Influenza Vaccine for 06/2017 - 11/2017 Season: No Physical Exam - Vital signs Vitals: Temp Pulse Resp BP Pulse Ox 98.9 F 98 16 106/61 96 01/10/18 17:36 01/10/18 17:36 01/10/18 17:36 01/10/18 17:36 01/10/18 17:36 Course - Vital Signs Vital signs: Temp Pulse Resp BP Pulse Ox 98.9 F 98 16 106/61 96 01/10/18 17:36 01/10/18 17:36 01/10/18 17:36 01/10/18 17:36 01/10/18 17:36
[2018-01-10 18:30] LABS: ABSOLUTE BASOPHILS # (AUTO) 0.1 10^3/uL (0.0-0.2); ABSOLUTE EOSINOPHILS # (AUTO) 0.1 10^3/uL (0.0-0.6); ABSOLUTE LYMPHOCYTES (AUTO) 1.1 10^3/uL (0.5-4.7); ABSOLUTE MONOCYTES (AUTO) 0.9 10^3/uL (0.1-1.4); ABSOLUTE NEUT (AUTO) 11.4 10^3/uL (1.7-8.2); EOSINOPHILS % (AUTO) 0.8 % (0-6); HEMATOCRIT 35.8 % (36.0-47.0); HEMOGLOBIN 11.9 g/dL (12.0-15.5); LYMPHOCYTES % (AUTO) 7.8 % (13-45); MEAN CORPUSCULAR HEMOGLOBIN 24.5 pg (27.0-33.4); MEAN CORPUSCULAR HGB CONC 33.2 g/dL (32.0-36.0); MEAN CORPUSCULAR VOLUME 74 fl (80-97); MONOCYTES % (AUTO) 6.5 % (3-13); PLATELET COUNT 345 10^3/uL (150-450); RED BLOOD COUNT 4.86 10^6/uL (3.72-5.28); RED CELL DISTRIBUTION WIDTH 15.3 % (11.5-14.0); SEGMENTED NEUTROPHILS % (AUTO) 83.9 % (42-78); TOTAL CELLS COUNTED % (AUTO) 100 %; WHITE BLOOD COUNT 13.6 10^3/uL (4.0-10.5)
[2018-01-10 18:32] LABS: APPEARANCE,URINE SLIGHTLY-CLOUDY; BILIRUBIN,URINE NEGATIVE (NEGATIVE); COLOR,URINE YELLOW; GLUCOSE, URINE NEGATIVE (NEGATIVE); KETONES,URINE NEGATIVE (NEGATIVE); LEUKOCYTE ESTERASE,URINE NEGATIVE (NEGATIVE); NITRITE,URINE NEGATIVE (NEGATIVE); PROTEIN,URINE NEGATIVE (NEGATIVE); URINE SPECIFIC GRAVITY 1.025; UROBILINOGEN,URINE NEGATIVE mg/dL (<2.0)
[2018-01-10 18:49] LABS: URINE AMPHETAMINES SCREEN NEGATIVE; URINE BARBITURATES SCREEN NEGATIVE; URINE BENZODIAZEPINES SCREEN NEGATIVE; URINE COCAINE SCREEN NEGATIVE; URINE MARIJUANA (THC) SCREEN UNCONFIRMED POSITIVE; URINE METHADONE SCREEN NEGATIVE; URINE PHENCYCLIDINE SCREEN NEGATIVE
[2018-01-10 18:50] LABS: ACETAMINOPHEN < 10 ug/mL (10-30); ALANINE AMINOTRANSFERASE 27 U/L (9-52); ALBUMIN 3.9 g/dL (3.5-5.0); ALCOHOL < 10 mg/dL (NONE DETECTED); ALKALINE PHOSPHATASE 86 U/L (38-126); ANION GAP 11 (5-19); ASPARTATE AMINO TRANSFERASE 21 U/L (14-36); BILIRUBIN,DIRECT 0.2 mg/dL (0.0-0.4); BILIRUBIN,TOTAL 0.4 mg/dL (0.2-1.3); BLOOD UREA NITROGEN 10 mg/dL (7-20); CALCIUM 9.5 mg/dL (8.4-10.2); CARBON DIOXIDE 27 mmol/L (22-30); CHLORIDE 103 mmol/L (98-107); GLUCOSE 155 mg/dL (75-110); POTASSIUM 3.8 mmol/L (3.6-5.0); SALICYLATE < 1.0 mg/dL (2.0-20.0); SODIUM 141.1 mmol/L (137-145); TOTAL PROTEIN 7.1 g/dL (6.3-8.2)
[2018-01-10] MEDS ORDERED: GABAPENTIN 300 MG CAPSULE PO ONE (19:55)
[2018-01-10] MEDS ORDERED: CITALOPRAM HYDROBROMIDE 20 MG TABLET PO ONE (19:55)
[2018-01-10] MEDS ORDERED: ARIPIPRAZOLE 5 MG TABLET PO ONE (19:55)
[2018-01-10] MEDS ORDERED: BUSPIRONE HCL 10 MG TABLET PO ONE (19:56)
--- NOTE | 2018-01-10 19:59 | ER Document Report ---
ED General - General Chief Complaint: Psych Problem Stated Complaint: BODY PAIN, FEVER,HALLUCINATIONS,CHILLS Time Seen by Provider: 01/10/18 17:54 Notes: Patient is a 28-year-old female with multiple chronic psychiatric conditions although no chronic medical problems who presents with concerns of body aches, subjective fever, "a tickle in my throat" and possible auditory hallucinations for the past 24 hours. Patient states that her body aches are a diffuse, cramping, throbbing pain. Symptoms have overall been improving since onset. Nothing improves or worsens her symptoms. She denies a history of similar in the past. She has not seen her primary doctor she states that she cannot afford to see them. She admits that she is out of all of her psychiatric medications for the past 2-3 days and is uncertain whether or not this is contributing to her symptoms. She denies any cough, shortness of breath, chest pain, weakness, numbness, headache, neck pain or confusion. She states that she often has auditory hallucinations when she stopped taking her medications and believes that this is likely the source of that symptom. She denies any suicidal or homicidal ideation. TRAVEL OUTSIDE OF THE [place] IN LAST 30 DAYS: No - Related Data Allergies/Adverse Reactions: haloperidol [From Haldol] Allergy (Verified 01/10/18 17:53) loses time. haloperidol lactate [From Haldol] Allergy (Verified 01/10/18 17:53) loses time. zolpidem tartrate [From Ambien] Adverse Reaction (Verified 01/10/18 17:53) sleep walks Past Medical History - General Information source: Patient - Social History Smoking Status: Never Smoker Chew tobacco use (# tins/day): No Frequency of alcohol use: None Drug Abuse: None Lives with: Family Family History: Arthritis, DM, Hyperlipidemia, Hypertension, Other. denies: CAD , COPD, CVA, Malignancy, Thyroid Disfunction Patient has suicidal ideation: No Patient has homicidal ideation: No Renal/ Medical History: Denies: Hx Peritoneal Dialysis Musculoskeltal Medical History: Reports Hx Musculoskeletal Deformity Psychiatric Medical History: Reports: Hx Anxiety, Hx Bipolar Disorder, Hx Depression, Hx Post Traumatic Stress Disorder, Hx Schizophrenia - Immunizations Immunizations up to date: Yes Hx Diphtheria, Pertussis, Tetanus Vaccination: Yes - unknown Review of Systems - Review of Systems Notes: Constitutional: Positive for subjective fever. Positive for body aches HENT: Positive for sore throat. Eyes: Negative for visual changes. Cardiovascular: Negative for chest pain. Respiratory: Negative for shortness of breath. Gastrointestinal: Negative for abdominal pain, vomiting or diarrhea. Genitourinary: Negative for dysuria. Musculoskeletal: Negative for back pain. Skin: Negative for rash. Neurological: Negative for headaches, weakness or numbness. 10 point ROS negative except as marked above and in HPI. Physical Exam - Vital signs Vitals: Temp Pulse Resp BP Pulse Ox 98.9 F 98 16 106/61 96 01/10/18 17:36 01/10/18 17:36 01/10/18 17:36 01/10/18 17:36 01/10/18 17:36 Interpretation: Normal Notes: PHYSICAL EXAMINATION: GENERAL: Well-appearing, well-nourished and in no acute distress. HEAD: Atraumatic, normocephalic. EYES: Pupils equal round and reactive to light, extraocular movements intact, sclera anicteric, conjunctiva are normal. ENT: nares patent, oropharynx clear without exudates. Moist mucous membranes. NECK: Normal range of motion, supple without lymphadenopathy LUNGS: Breath sounds clear to auscultation bilaterally and equal. No wheezes rales or rhonchi. HEART: Regular rate and rhythm without murmurs ABDOMEN: Soft, nontender, normoactive bowel sounds. No guarding, no rebound. No masses appreciated. EXTREMITIES: Normal range of motion, no pitting or edema. No cyanosis. NEUROLOGICAL: No focal neurological deficits. Moves all extremities spontaneously and on command. PSYCH: Poor eye contact, does not appear to be responding to internal stimuli. No distress. Denies suicidal or homicidal ideation. SKIN: Warm, Dry, normal turgor, no rashes or lesions noted. Course - Re-evaluation Re-evalutation: 01/10/18 19:52 Patient presents with multiple vague complaints that did not appear to be concerning for any acute life-threatening pathology. Vitals are within normal limits at triage and at time of discharge. Physical examination is unremarkable. Patient has tolerated oral intake without difficulty. Patient was not noted to be in distress at any point during their ER visit. At this time, based on the reassuring evaluation, I do not suspect an acute MD, pulmonary embolus, aortic dissection, acute intra-abdominal pathology, stroke, or sepsis. Labs unremarkable. Patient has come off multiple psychiatric medications and could be undergoing serotonin withdrawal syndrome based on her complaints. Of note her vitals are normal and patient states she never did record a fever. Will re-prescribe the patient's home medications that she can recall and emphasized the need for close outpatient follow-up. Will discharge with return precautions and follow-up recommendations. Verbal discharge instructions given a the bedside and opportunity for questions given. Medication warnings reviewed. Patient is in agreement with this plan and has verbalized understanding of return precautions and the need for primary care follow-up in the next 24-72 hours. - Vital Signs Vital signs: Temp Pulse Resp BP Pulse Ox 98.9 F 98 16 106/61 96 01/10/18 17:36 01/10/18 17:36 01/10/18 17:36 01/10/18 17:36 01/10/18 17:36 - Laboratory Result Diagrams: 01/10/18 18:06 01/10/18 18:06 Laboratory results interpreted by me: 01/10/18 01/10/18 18:06 18:06 WBC 13.6 H Hgb 11.9 L Hct 35.8 L MCV 74 L MCH 24.5 L RDW 15.3 H Seg Neutrophils % 83.9 H Lymphocytes % 7.8 L Absolute Neutrophils 11.4 H Glucose 155 H Salicylates < 1.0 L Acetaminophen < 10 L Discharge - Discharge Clinical Impression: Body aches, Medication refill, Auditory hallucinations Condition: Good Disposition: HOME, SELF-CARE Additional Instructions: Please return if you have thoughts of wanting to hurt yourself, hurt others, or have any other symptoms that are concerning to you. Please resume all medications and immediately contact your psychiatric primary provider and notify them that you need to be seen for refills of your medications. Prescriptions: Aripiprazole 20 mg PO DAILY #30 tablet Buspirone HCl 10 mg PO TID #90 tablet Citalopram Hydrobromide [Citalopram HBr] 40 mg PO DAILY #30 tablet Gabapentin 300 mg PO TID #90 capsule Prazosin HCl 2 mg PO DAILY #30 capsule
--- NOTE | 2018-01-10 21:21 | EKG REPORT ---
SEVERITY:- BORDERLINE ECG - SINUS RHYTHM BORDERLINE T ABNORMALITIES, INFERIOR LEADS : Confirmed by: Johana Mathis 10-Jan-2018 21:20:52
[2018-01-10 21:30] VITALS: BP 122/67
== END 2018-01-10 20:20 | disposition home or self-care (01) ==
LOC: ER 17:17
DX: Z76.0 Encounter for issue of repeat prescription (principal); F20.9 Schizophrenia, unspecified; F31.9 Bipolar disorder, unspecified; F41.9 Anxiety disorder, unspecified; T43.596A Underdosing of other antipsychotics and neuroleptics, initial encounter; T43.226A Underdosing of selective serotonin reuptake inhibitors, initial encounter; T42.6X6A Underdosing of other antiepileptic and sedative-hypnotic drugs, initial encounter; Z91.120 Patient's intentional underdosing of medication regimen due to financial hardship; Z91.14 Patient's other noncompliance with medication regimen; R09.89 Other specified symptoms and signs involving the circulatory and respiratory systems; J02.9 Acute pharyngitis, unspecified; R25.2 Cramp and spasm; Z88.8 Allergy status to other drugs, medicaments and biological substances
CPT/HCPCS: 36415; 80053; 80307; 81001; 84703; 85025; 93005; 93010; 99284

== ENCOUNTER 2018-03-13 10:49 | Emergency (ER) | payer OTHER ==
[2018-03-13 10:58] VITALS: BP 102/63
[2018-03-13] MEDS ORDERED: CEPHALEXIN 500 MG CAPSULE PO ONE (11:55)
--- NOTE | 2018-03-13 11:59 | ER Document Report ---
ED ENT - General Chief Complaint: Ear Pain Stated Complaint: EAR PAIN Time Seen by Provider: 03/13/18 11:55 Mode of Arrival: Ambulatory Information source: Patient Notes: 28-year-old female presented to ED for complaint of pain to the left ear piercing to the upper cartilage of her left ear. She states she had a piercing done recently and has developed a abscess with pain and drainage to the area. She has not removed the ear piercing. She states she has not been cleaning the area with alcohol or peroxide. She has not applied any antibiotic ointment to the area. She states she has not removed it because she did not want to lose the piercing. TRAVEL OUTSIDE OF THE [place] IN LAST 30 DAYS: No - HPI Patient complains to provider of: Ear problem Onset: Other - Several weeks Onset/Duration: Persistent Quality of pain: Achy, Sharp Severity: Moderate Pain Level: 4 Context: Other - Recent ear piercing that is infected to the upper cartilage of the left ear Location of pain: Ears Associated symptoms: Other - Infected ear piercing to the upper cartilage of the left ear Similar symptoms previously: No Recently seen / treated by doctor: No - Related Data Allergies/Adverse Reactions: haloperidol [From Haldol] Allergy (Verified 01/10/18 17:53) loses time. haloperidol lactate [From Haldol] Allergy (Verified 01/10/18 17:53) loses time. zolpidem tartrate [From Ambien] Adverse Reaction (Verified 01/10/18 17:53) sleep walks Past Medical History - General Information source: Patient - Social History Smoking Status: Never Smoker Chew tobacco use (# tins/day): No Frequency of alcohol use: None Drug Abuse: None Lives with: Family Family History: Arthritis, DM, Hyperlipidemia, Hypertension, Other. denies: CAD , COPD, CVA, Malignancy, Thyroid Disfunction Patient has suicidal ideation: No Patient has homicidal ideation: No - Past Medical History Cardiac Medical History: Reports: None Pulmonary Medical History: Reports: None EENT Medical History: Reports: None Neurological Medical History: Reports: None Endocrine Medical History: Reports: None Renal/ Medical History: Reports: None Malignancy Medical History: Reports: None GI Medical History: Reports: None Musculoskeltal Medical History: Reports Hx Musculoskeletal Deformity Skin Medical History: Reports None Psychiatric Medical History: Reports: Hx Anxiety, Hx Bipolar Disorder, Hx Depression, Hx Post Traumatic Stress Disorder, Hx Schizophrenia Traumatic Medical History: Reports: None Infectious Medical History: Reports: None Surgical Hx: Negative Past Surgical History: Reports: None - Immunizations Immunizations up to date: Yes Hx Diphtheria, Pertussis, Tetanus Vaccination: Yes - unknown Review of Systems - Review of Systems Constitutional: No symptoms reported EENT: Ear pain - Infected ear piercing to the upper cartilage of the left ear Cardiovascular: No symptoms reported Respiratory: No symptoms reported Gastrointestinal: No symptoms reported Genitourinary: No symptoms reported Female Genitourinary: No symptoms reported Musculoskeletal: No symptoms reported Skin: Other - Infected ear piercing to the upper cartilage of the left ear Hematologic/Lymphatic: No symptoms reported Neurological/Psychological: No symptoms reported Physical Exam - Vital signs Vitals: Temp Pulse Resp BP Pulse Ox 98.0 F 70 16 102/63 99 03/13/18 10:57 03/13/18 10:57 03/13/18 10:57 03/13/18 10:57 03/13/18 10:57 Interpretation: Normal - General General appearance: Appears well, Alert - HEENT Head: Normocephalic, Atraumatic Eyes: Normal Pupils: PERRL - Respiratory Respiratory status: No respiratory distress Chest status: Nontender Breath sounds: Normal Chest palpation: Normal - Cardiovascular Rhythm: Regular Heart sounds: Normal auscultation Murmur: No - Abdominal Inspection: Normal Distension: No distension Bowel sounds: Normal Tenderness: Nontender Organomegaly: No organomegaly - Back Back: Normal, Nontender - Extremities General upper extremity: Normal inspection, Nontender, Normal color, Normal ROM , Normal temperature General lower extremity: Normal inspection, Nontender, Normal color, Normal ROM , Normal temperature, Normal weight bearing. No: Jose Luis's sign - Neurological Neuro grossly intact: Yes Cognition: Normal Orientation: AAOx4 [place] Coma Scale Eye Opening: Spontaneous [place] Coma Scale Verbal: Oriented [place] Coma Scale Motor: Obeys Commands [place] Coma Scale Total: 15 Speech: Normal Motor strength normal: LUE, RUE, LLE, RLE Sensory: Normal - Psychological Associated symptoms: Normal affect, Normal mood - Skin Skin Temperature: Warm Skin Moisture: Dry Skin Color: Normal Skin irregularity: Abscess Location of irregularity: Other - Upper cartilage of the left ear Irregularity with: Swelling, Tenderness, Warmth Course - Re-evaluation Re-evalutation: 03/13/18 22:01 Piercing to the upper cartilage of the left ear was removed, the area was cleaned well with surgical scrub. The abscess was opened with an 18-gauge needle with return of moderate amount of purulent drainage. The ear was then we cleaned well and bacitracin applied. The piercing june was well cleaned and then replaced to the lower part of the piercing to the ear. Patient was instructed to leave the piercing out of the upper cartilage to let this area heal. Patient was encouraged to remove the june when she got home and put a different type of ear piercing into this opening. Patient was instructed to follow-up with her primary care doctor. Patient was instructed to return to the ED or her primary care doctor for any increase in pain or any other signs and symptoms of infection. - Vital Signs Vital signs: Temp Pulse Resp BP Pulse Ox 98.0 F 70 16 102/63 99 03/13/18 10:57 03/13/18 10:57 03/13/18 10:57 03/13/18 10:57 03/13/18 10:57 Procedures - Incision and Drainage Left upper cartilage of the left ear Time completed: 11:30 Type: Simple Anesthetic type: Other mL's of anesthetic: 0 Blade size: Other - 18-gauge needle I&D procedure: Shurclens applied Incision Method: Incision made with needle Amount/type of drainage: Small amount of purulent and bloody drainage. Piercing was removed Discharge - Discharge Clinical Impression: Infected pierced ear Qualifiers: Encounter type: initial encounter Laterality: left Qualified Code(s): S01.332A - Puncture wound without foreign body of left ear, initial encounter Condition: Stable Disposition: HOME, SELF-CARE Instructions: Family Physicians / Practices, Use of Udiu-Ijx-Yxrcofn Ibuprofen ([facility]) Additional Instructions: You were seen today for an infected piercing to your left ear the upper cartilage. Earring needs to stay out of this piercing and to this infection heals Please cleaned the ear 3 times a day with some gentle soap rinsed well pat dry and apply bacitracin. Cephalexin The antibiotic you've been prescribed is a member of the cephalosporin class. This type of antibiotic covers a wide variety of infections, including those of the skin, lungs, and urinary tract. It's useful for staph infections. This antibiotic is slightly similar to the penicillin family. In rare cases , a person who is allergic to penicillin will also be allergic to this medication. If you have had a severe allergic reaction to penicillin, and have not taken this antibiotic since that time, notify your doctor. Antibiotics which cover many germs ("broad spectrum" antibiotics) are more likely to cause diarrhea or "yeast" infections. Women prone to vaginal yeast problems may suffer an attack after taking this antibiotic. In infants, oral thrush (white spots "stuck" on the cheek) or yeast diaper rash may result. See your doctor if these problems occur. Call at once if you develop itching, hives , shortness of breath, or lightheadedness. Acetaminophen Acetaminophen may be taken for pain relief or fever control. It's much safer than aspirin, offering a wider range of "safe" dosages. It is safe during . Some brand names are Tylenol, Panadol, Datril, Anacin 3, Tempra, and Liquiprin. Acetaminophen can be repeated every four hours. The following are maximum recommended dosages: WEIGHT Dose Drops Elixir Chewable( 80mg) (LBS.) drprs=droppers tsp=teaspoon 6 40 mg .4 ml (1/2) 6-11 80 mg .8 ml (full) 1/2 tsp 1 tab 12-16 120 mg 1 1/2 drprs 3/4 tsp 1 1/2 tabs 17-23 160 mg 2 drprs 1 tsp 2 tabs 24-30 240 mg 3 drprs 1 1/2 tsp 3 tabs 30-35 320 mg 2 tsp 4 tabs 36-41 360 mg 2 1/4 tsp 4 1 /2 tabs 42-47 400 mg 2 1/2 tsp 5 tabs 48-53 480 mg 3 tsp 6 tabs 54-59 520 mg 3 1/4 tsp 6 1 /2 tabs 60-64 560 mg 3 1/2 tsp 7 tabs 65-70 600 mg 3 3/4 tsp 7 1 /2 tabs 71-76 640 mg 4 tsp 8 tabs 77-82 720 mg 4 1/2 tsp 9 tabs 83-88 800 mg 5 tsp 10 tabs >89 pounds or adults 650 mg to 900 mg Acetaminophen can be repeated every four hours. Maximum daily dose not to exceed 4000 mg. These maximum recommended dosages are slightly higher than the dosages written on the product container, but these dosages are very safe and well below the toxic dosage for acetaminophen. FOLLOW-UP CARE: If you have been referred to a physician for follow-up care, call the physician s office for an appointment as you were instructed or within the next two days. If you experience worsening or a significant change in your symptoms, notify the physician immediately or return to the Emergency Department at any time for re-evaluation. Prescriptions: Cephalexin Monohydrate [Keflex 500 mg Capsule] 500 mg PO Q6H 5 Days capsule
== END 2018-03-13 12:04 | disposition home or self-care (01) ==
LOC: ER 10:49
PROC: 0H93XZZ Drainage of Left Ear Skin, External Approach (ICD-10-PCS; principal; 2018-03-13)
DX: S01.332A Puncture wound without foreign body of left ear, initial encounter (principal); H60.02 Abscess of left external ear; H92.02 Otalgia, left ear; X58.XXXA Exposure to other specified factors, initial encounter
CPT/HCPCS: 99282

== ENCOUNTER 2018-07-31 12:25 | Emergency (ER) | payer MEDICARE, OTHER, MEDICAID ==
[2018-07-31] MEDS ORDERED: KETOROLAC TROMETHAMINE 60 MG/2 ML SDV IM ONE (12:50)
--- NOTE | 2018-07-31 13:04 | ER Document Report ---
ED Neck/Back Problem - General Chief Complaint: Back Pain Stated Complaint: BACK PAIN Time Seen by Provider: 07/31/18 12:39 Mode of Arrival: Ambulatory Information source: Patient Notes: 28-year-old female presents to ED for complaint of left flank pain. She states the pain started all of a sudden while getting up from the table while eating Thanksgiving dinner. Patient is alert oriented respirations regular and unlabored speaking in full sentences. She denies any injuries. She denies any previous back pain. TRAVEL OUTSIDE OF THE [place] IN LAST 30 DAYS: No - HPI Patient complains to provider of: Pain - Left flank area Onset: Just prior to arrival Where: Other - At a public place eating dinner Onset: Sudden Timing: Still present Quality of pain: Sharp Severity: Moderate Pain Level: 4 Context: Other - Getting up from the table Recent injury: No Associated symptoms: Other - Left flank Exacerbated by: Movement of trunk Relieved by: Nothing Similar symptoms previously: No Recently seen / treated by doctor: No - Related Data Allergies/Adverse Reactions: haloperidol [From Haldol] Allergy (Verified 07/31/18 12:29) loses time. haloperidol lactate [From Haldol] Allergy (Verified 07/31/18 12:29) loses time. zolpidem tartrate [From Ambien] Adverse Reaction (Verified 07/31/18 12:29) sleep walks Past Medical History - General Information source: Patient - Social History Smoking Status: Never Smoker Cigarette use (# per day): No Chew tobacco use (# tins/day): No Smoking Education Provided: No Frequency of alcohol use: None Drug Abuse: None Lives with: Alone Family History: Arthritis, DM, Hyperlipidemia, Hypertension, Other. denies: CAD , COPD, CVA, Malignancy, Thyroid Disfunction Patient has suicidal ideation: No Patient has homicidal ideation: No - Past Medical History Cardiac Medical History: Reports: None Pulmonary Medical History: Reports: None EENT Medical History: Reports: None Neurological Medical History: Reports: None Endocrine Medical History: Reports: None Renal/ Medical History: Reports: None Malignancy Medical History: Reports: None GI Medical History: Reports: None Musculoskeletal Medical History: Reports Hx Musculoskeletal Deformity Skin Medical History: Reports None Psychiatric Medical History: Reports: Hx Anxiety, Hx Bipolar Disorder, Hx Depression, Hx Post Traumatic Stress Disorder, Hx Schizophrenia Traumatic Medical History: Reports: None Infectious Medical History: Reports: None - Immunizations Immunizations up to date: Yes Hx Diphtheria, Pertussis, Tetanus Vaccination: Yes - unknown Review of Systems - Review of Systems Notes: REVIEW OF SYSTEMS: CONSTITUTIONAL : Denies fever, chills, or sweats. Denies recent illness. EENT: Denies eye, ear, throat, or mouth pain or symptoms. Denies nasal or sinus congestion or discharge. Denies throat, tongue, or mouth swelling or difficulty swallowing. CARDIOVASCULAR: Denies chest pain. Denies palpitations or racing or irregular heart beat. Denies ankle edema. RESPIRATORY: Denies cough, cold, or chest congestion. Denies shortness of breath, difficulty breathing, or wheezing. GASTROINTESTINAL: Denies abdominal pain or distention. Denies nausea, vomiting , or diarrhea. Denies blood in vomitus, stools, or per rectum. Denies black, tarry stools. Denies constipation. GENITOURINARY: Denies difficulty urinating, painful urination, burning, frequency, blood in urine, or discharge. FEMALE GENITOURINARY: Denies vaginal bleeding, heavy or abnormal periods, irregular periods. Denies vaginal discharge or odor. MUSCULOSKELETAL: Left flank pain. Denies joint pain or swelling. SKIN: Denies rash, lesions or sores. HEMATOLOGIC : Denies easy bruising or bleeding. LYMPHATIC: Denies swollen, enlarged glands. NEUROLOGICAL: Denies confusion or altered mental status. Denies passing out or loss of consciousness. Denies dizziness or lightheadedness. Denies headache. Denies weakness or paralysis or loss of use of either side. Denies problems with gait or speech. Denies sensory loss, numbness, or tingling. Denies seizures. PHYSICAL EXAMINATION: GENERAL: Well-appearing, well-nourished and in no acute distress. HEAD: Atraumatic, normocephalic. EYES: Pupils equal round and reactive to light, extraocular movements intact, conjunctiva are normal. ENT: Nares patent, oropharynx clear without exudates. Moist mucous membranes. NECK: Normal range of motion, supple without lymphadenopathy LUNGS: Breath sounds clear to auscultation bilaterally and equal. No wheezes rales or rhonchi. HEART: Regular rate and rhythm without murmurs ABDOMEN: Soft, nondistended abdomen. No guarding, no rebound. No masses appreciated. Left upper abdomen tenderness Female : deferred Musculoskeletal: Normal range of motion, no pitting or edema. No cyanosis. Left CVA tenderness NEUROLOGICAL: Cranial nerves grossly intact. Normal speech, normal gait. Normal sensory, motor exams PSYCH: Normal mood, normal affect. SKIN: Warm, Dry, normal turgor, no rashes or lesions noted. PSYCHIATRIC: Denies anxiety or stress. Denies depression, suicidal ideation, or homicidal ideation. ALL OTHER SYSTEMS REVIEWED AND NEGATIVE. Dictation was performed using [employer] voice recognition software Physical Exam - Vital signs Vitals: Temp Pulse Resp BP Pulse Ox 97.7 F 85 20 106/62 98 07/31/18 12:34 07/31/18 12:34 07/31/18 12:34 07/31/18 12:34 07/31/18 12:34 Course - Re-evaluation Re-evalutation: 07/31/18 14:[address] and urine with patient and written report of CT given to patient. Patient to follow-up with her primary doctor on Saturday. Patient was treated with Toradol and Flexeril and given a prescription for Flexeril. - Vital Signs Vital signs: Temp Pulse Resp BP Pulse Ox 97.8 F 71 16 97/57 L 97 07/31/18 14:36 07/31/18 14:36 07/31/18 14:36 07/31/18 14:36 07/31/18 14:36 - Laboratory Laboratory results interpreted by me: 07/31/18 13:03 Urine Ascorbic Acid 40 H - Diagnostic Test Radiology reviewed: Image reviewed, Reports reviewed Discharge - Discharge Clinical Impression: Left flank pain Condition: Stable Disposition: HOME, SELF-CARE Instructions: Family Physicians / Practices Additional Instructions: Flank Pain We weren't able to prove an exact cause for your flank pain. Pain in the flank can be caused by a muscle strain or spasm. Sometimes a kidney stone causes pain, but can't be found on our tests. Infection in the kidney should be evident on a urine test. Early shingles can occasionally cause flank pain, without the rash that proves the diagnosis. On rare occasions, disease of the pancreas, aorta, spleen, or colon can create pain in the flank. At this time, there's no evidence of a dangerous condition, and it seems safe for you to be at home. If the pain goes away and does not come back, no further testing will be needed. If pain persists, or becomes more severe, we may need to repeat some tests or order additional new testing. Blood in the urine, urgency to urinate frequently, and pain that radiates to the groin can indicate a kidney stone. Fever may mean that the pain is due to infection, either of the kidney or the colon (diverticulitis). If your pain is early shingles, you should develop an eruption of blisters in the painful area within a few days. Call the doctor or return if you have pain that is spreading or becoming more severe, pain that does not resolve with time, fever, or any other new symptoms. MUSCLE RELAXERS: Muscle relaxing medications are usually prescribed for acute muscle spasm or injury to the neck and back. They are often combined with antiinflammatory pain medication for increased relief. You may stop the muscle relaxer when the pain and stiffness have improved. Start the medication again if spasms recur. Muscle relaxers may cause drowsiness, especially with the first dose. Do not operate machinery or drive while under the effects of the medication. Most muscle relaxers last up to 24 hours. Do not combine the medication with alcohol. Acetaminophen Acetaminophen may be taken for pain relief or fever control. It's much safer than aspirin, offering a wider range of "safe" dosages. It is safe during . Some brand names are Tylenol, Panadol, Datril, Anacin 3, Tempra, and Liquiprin. Acetaminophen can be repeated every four hours. The following are maximum recommended dosages: WEIGHT Dose Drops Elixir Chewable( 80mg) (LBS.) drprs=droppers tsp=teaspoon 6 40 mg .4 ml (1/2) 6-11 80 mg .8 ml (full) 1/2 tsp 1 tab 12-16 120 mg 1 1/2 drprs 3/4 tsp 1 1/2 tabs 17-23 160 mg 2 drprs 1 tsp 2 tabs 24-30 240 mg 3 drprs 1 1/2 tsp 3 tabs 30-35 320 mg 2 tsp 4 tabs 36-41 360 mg 2 1/4 tsp 4 1 /2 tabs 42-47 400 mg 2 1/2 tsp 5 tabs 48-53 480 mg 3 tsp 6 tabs 54-59 520 mg 3 1/4 tsp 6 1 /2 tabs 60-64 560 mg 3 1/2 tsp 7 tabs 65-70 600 mg 3 3/4 tsp 7 1 /2 tabs 71-76 640 mg 4 tsp 8 tabs 77-82 720 mg 4 1/2 tsp 9 tabs 83-88 800 mg 5 tsp 10 tabs >89 pounds or adults 650 mg to 900 mg Acetaminophen can be repeated every four hours. Maximum daily dose not to exceed 4000 mg. These maximum recommended dosages are slightly higher than the dosages written on the product container, but these dosages are very safe and well below the toxic dosage for acetaminophen. Ibuprofen Ibuprofen is an excellent, safe drug for pain control. In addition, it has potent antiinflammatory effects which are beneficial, especially in the treatment of injuries, arthritis, or tendonitis. It's best to take ibuprofen with food. Persons with ulcer disease or allergy to aspirin should notify their physician of this before taking ibuprofen. Take the medication exactly as prescribed. Don't take additional doses unless instructed to do so by your doctor. If you develop wheezing, shortness of breath, hives, faintness, stomach pain, vomiting, or dark black stools, return for re-evaluation at once. ICE PACKS: Apply ice packs frequently against the painful area. Many different schedules are recommended, such as "20 minutes on, 20 minutes off" or "one hour ice, two hours rest." If you need to work, you may need to go longer between ice treatments. You should plan to have the area ice packed AT LEAST one fourth of the time. The ice should be applied over the wrap, tape, or splint, or over a layer of cloth -- not directly against the skin. Some ice bags have a built-in cloth and can be put directly on the skin. WARM PACKS: After approximately two days, apply gentle heat (such as a heating pad or hot water bottle) for about 20 to 30 minutes about every two hours -- at least four times daily. Warmth and elevation will help you make a more rapid recovery , and will ease the pain considerably. Do not use HOT heat, and never apply heat for longer than 30 minutes. The continuous heat can invisibly damage skin and muscles -- even when no burn is seen on the surface. Damaged muscles can make you MORE sore. FOLLOW-UP CARE: If you have been referred to a physician for follow-up care, call the physician s office for an appointment as you were instructed or within the next two days. If you experience worsening or a significant change in your symptoms, notify the physician immediately or return to the Emergency Department at any time for re-evaluation. Prescriptions: Cyclobenzaprine HCl [Flexeril 10 mg Tablet] 10 mg PO TIDP PRN #15 tab PRN Reason: Ibuprofen [Motrin 800 mg Tablet] 800 mg PO Q8H PRN #20 tab PRN Reason:
[2018-07-31 13:32] LABS: APPEARANCE,URINE SLIGHTLY-CLOUDY; BILIRUBIN,URINE NEGATIVE (NEGATIVE); COLOR,URINE YELLOW; GLUCOSE, URINE NEGATIVE (NEGATIVE); KETONES,URINE NEGATIVE (NEGATIVE); LEUKOCYTE ESTERASE,URINE NEGATIVE (NEGATIVE); NITRITE,URINE NEGATIVE (NEGATIVE); PROTEIN,URINE NEGATIVE (NEGATIVE); URINE SPECIFIC GRAVITY 1.024; UROBILINOGEN,URINE NEGATIVE mg/dL (<2.0)
--- NOTE | 2018-07-31 14:02 | RADIOLOGY REPORT (SQ) ---
EXAM DESCRIPTION: CT LTD RENAL STONE PROTOCOL ON COMPLETED DATE/TIME: 07/31/2018 1:53 pm REASON FOR STUDY: left flank pain COMPARISON: None. TECHNIQUE: CT scan of the abdomen and pelvis performed without intravenous or oral contrast. Images reviewed with lung, soft tissue, and bone windows. Reconstructed coronal and sagittal MPR images revi ewed. All images stored on PACS. All CT scanners at this facility use dose modulation, iterative reconstruction, and/or weight based d osing when appropriate to reduce radiation dose to as low as reasonably achievable (ALARA). [facility]: Dose Right [facility]: CareDose [facility]: Dose Right [facility]: Teradose 4D [facility]: [employer] RADIATION DOSE: CT Rad equipment meets quality standard of care and radiation dose reduction techniq ues were employed. CTDIvol: 9.5 mGy. DLP: 521 mGy-cm.mGy. LIMITATIONS: None. FINDINGS: LOWER CHEST: No significant findings. No nodules or infiltrates. NON-CONTRASTED LIVER, SPLEEN, ADRENALS: Evaluation limited by lack of IV contrast. No identified sign ificant masses. PANCREAS: No masses. No peripancreatic inflammatory changes. GALLBLADDER: No identified stones by CT criteria. No inflammatory changes to suggest cholecystitis. RIGHT KIDNEY AND URETER: No suspicious masses. Assessment limited by lack of IV contrast. No signif icant calcifications. No hydronephrosis or hydroureter. LEFT KIDNEY AND URETER: No suspicious masses. Assessment limited by lack of IV contrast. No signifi cant calcifications. No hydronephrosis or hydroureter. AORTA AND RETROPERITONEUM: No aneurysm. No retroperitoneal masses or adenopathy. BOWEL AND PERITONEAL CAVITY: No obvious masses or inflammatory changes. No free fluid. APPENDIX: Normal. PELVIS, BLADDER, AND ABDOMINAL WALL:No abnormal masses. No free fluid. Bladder normal. BONES: No significant findings. OTHER: No other significant finding. IMPRESSION: NO SIGNIFICANT OR ACUTE PROCESS IN THE ABDOMEN OR PELVIS. COMMENT: Quality ID # [id number]: Final reports with documentation of one or more dose reduction techniques (e.g., Automated exposure control, adjustment of the mA and/or kV according to patient size, use of iterative reconstruction technique) TECHNICAL DOCUMENTATION: JOB ID: [id number] [employer]- All Rights Reserved Reading location - IP/workstation name: [email or web address]
[2018-07-31] MEDS ORDERED: CYCLOBENZAPRINE HCL 10 MG TABLET PO ONE (14:28)
[2018-07-31 14:39] VITALS: BP 97/57
== END 2018-07-31 14:47 | disposition home or self-care (01) ==
LOC: ER 12:25
DX: R10.9 Unspecified abdominal pain (principal); Z88.8 Allergy status to other drugs, medicaments and biological substances
CPT/HCPCS: 99284; 96372; 87086; 81025; 81001; 76380; A9270; J1885

== ENCOUNTER 2019-09-17 02:17 | Emergency (ER) | payer MEDICARE, OTHER, MEDICAID ==
--- NOTE | 2019-09-17 04:37 | RADIOLOGY REPORT (SQ) ---
EXAM DESCRIPTION: XR HAND 3 OR MORE VIEWS COMPLETED DATE/TME: 09/17/2019 00:00 CLINICAL HISTORY: 29 years, Female, swelling/injury COMPARISON: None. NUMBER OF VIEWS: 3 TECHNIQUE: 3 views left hand LIMITATIONS: None. FINDINGS: Negative for fracture or dislocation. Dorsal soft tissue swelling. IMPRESSION: No acute fracture copyright 2010 [employer]- All Rights Reserved
[2019-09-17 04:46] LABS: ABSOLUTE BASOPHILS # (AUTO) 0.1 10^3/uL (0.0-0.2); ABSOLUTE LYMPHOCYTES (AUTO) 1.5 10^3/uL (0.5-4.7); ABSOLUTE MONOCYTES (AUTO) 0.6 10^3/uL (0.1-1.4); BASOPHILS % (AUTO) 0.6 % (0-2); HEMATOCRIT 38.6 % (36.0-47.0); HEMOGLOBIN 12.9 g/dL (12.0-15.5); LYMPHOCYTES % (AUTO) 9.8 % (13-45); MEAN CORPUSCULAR HEMOGLOBIN 24.8 pg (27.0-33.4); MEAN CORPUSCULAR HGB CONC 33.3 g/dL (32.0-36.0); MEAN CORPUSCULAR VOLUME 75 fl (80-97); MONOCYTES % (AUTO) 4.2 % (3-13); PLATELET COUNT 352 10^3/uL (150-450); RED BLOOD COUNT 5.18 10^6/uL (3.72-5.28); RED CELL DISTRIBUTION WIDTH 14.2 % (11.5-14.0); SEGMENTED NEUTROPHILS % (AUTO) 85.4 % (42-78); TOTAL CELLS COUNTED % (AUTO) 100 %; WHITE BLOOD COUNT 15.3 10^3/uL (4.0-10.5)
[2019-09-17 05:04] LABS: ALBUMIN 4.6 g/dL (3.5-5.0); ALKALINE PHOSPHATASE 130 U/L (38-126); ANION GAP 14 (5-19); ASPARTATE AMINO TRANSFERASE 27 U/L (14-36); BILIRUBIN,DIRECT 0.2 mg/dL (0.0-0.4); BILIRUBIN,TOTAL 0.7 mg/dL (0.2-1.3); BLOOD UREA NITROGEN 13 mg/dL (7-20); CARBON DIOXIDE 21 mmol/L (22-30); CHLORIDE 106 mmol/L (98-107); GLUCOSE 109 mg/dL (75-110); POTASSIUM 3.9 mmol/L (3.6-5.0); TOTAL PROTEIN 8.4 g/dL (6.3-8.2)
[2019-09-17] MEDS ORDERED: CEPHALEXIN 500 MG CAPSULE PO ONE (06:39)
[2019-09-17 06:45] VITALS: BP 138/89
--- NOTE | 2019-09-17 06:45 | ER Document Report ---
ED General - General Chief Complaint: Hand Injury Stated Complaint: HAND SWOLLEN Time Seen by Provider: 09/17/19 05:36 Notes: 29-year-old female presents the emergency department stating that around 2 AM she was injecting cocaine into her left hand but had difficulty drawing back blood and when she finally got blood it was thick and dark and looked like it was sand. After that she developed some swelling and some numbness and tingling to her left hand. States that all of that has improved however the swelling has not completely resolved. The numbness and tingling has resolved. Patient is right-handed. Patient has been just injecting cocaine intermittently along with methamphetamine for the past several months. Uses a clean needle every time, does not use alcohol swabs to clean the skin. TRAVEL OUTSIDE OF THE [place] IN LAST 30 DAYS: No - Related Data Allergies/Adverse Reactions: haloperidol [From Haldol] Allergy (Verified 07/31/18 12:29) loses time. haloperidol lactate [From Haldol] Allergy (Verified 07/31/18 12:29) loses time. zolpidem tartrate [From Ambien] Adverse Reaction (Verified 07/31/18 12:29) sleep walks Home Medications: Abilify. [place] Past Medical History - General Information source: Patient - Social History Smoking Status: Current Every Day Smoker Chew tobacco use (# tins/day): No Frequency of alcohol use: Rare Drug Abuse: Cocaine, Marijuana, Methamphetamine Family History: Arthritis, DM, Hyperlipidemia, Hypertension, Other. denies: CAD, COPD, CVA, Malignancy, Thyroid Disfunction Patient has suicidal ideation: No Patient has homicidal ideation: No Renal/ Medical History: Denies: Hx Peritoneal Dialysis Musculoskeletal Medical History: Reports Hx Musculoskeletal Deformity Psychiatric Medical History: Reports: Hx Anxiety, Hx Bipolar Disorder, Hx Depression, Hx Post Traumatic Stress Disorder, Hx Schizophrenia - Immunizations Immunizations up to date: Yes Hx Diphtheria, Pertussis, Tetanus Vaccination: Yes - unknown Review of Systems - Review of Systems Constitutional: No symptoms reported Cardiovascular: No symptoms reported Respiratory: No symptoms reported Musculoskeletal: See HPI Skin: No symptoms reported. denies: Change in color, Other Neurological/Psychological: See HPI Physical Exam - Vital signs Vitals: Temp Pulse Resp BP Pulse Ox 98.8 F 100 16 130/88 H 100 09/17/19 02:22 09/17/19 02:22 09/17/19 02:22 09/17/19 02:22 09/17/19 02:22 Interpretation: Normal - General General appearance: Appears well, Alert In distress: None - HEENT Head: Normocephalic, Atraumatic Eyes: Normal Pupils: PERRL Mucous membranes: Moist - Respiratory Respiratory status: No respiratory distress - Cardiovascular Pulses: Normal: Radial - Extremities Notes: Dorsal aspect of the left hand has mild to moderate swelling over the second and third metacarpal, no fluctuance, there is a puncture wound with dried blood, there is no increased warmth, there is no erythema, it is nontender to palpation. There is no bruising noted, no lymphangitic streaking. Patient has full range of motion of the right hand, sensation is intact. Radial pulse is 2+. Course - Re-evaluation Re-evalutation: 09/17/19 06:43 Blood work shows leukocytosis, there is minimal erythema. Suspect that patient actually has a blown vein however discussed with patient that since she does not prepped the skin with alcohol every time that she injects and she does have a slight leukocytosis we will treat her with Keflex as well as warm compresses. Congratulated patient on using a new needle every time, educated her on the need to clean the skin with alcohol. Provided resources for detox. Discharged home. - Vital Signs Vital signs: Temp Pulse Resp BP Pulse Ox 98.8 F 100 16 130/88 H 100 09/17/19 02:22 09/17/19 02:22 09/17/19 02:22 09/17/19 02:22 09/17/19 02:22 - Laboratory Result Diagrams: 09/17/19 04:30 09/17/19 04:30 Laboratory results interpreted by me: 09/17/19 09/17/19 04:30 04:30 WBC 15.3 H MCV 75 L MCH 24.8 L RDW 14.2 H Lymph % (Auto) 9.8 L Absolute Neuts (auto) 13.0 H Seg Neutrophils % 85.4 H Carbon Dioxide 21 L Est GFR (MDRD) Non-Af 51 L Alkaline Phosphatase 130 H Total Protein 8.4 H Discharge - Discharge Clinical Impression: Swelling of left hand, Cellulitis of left hand excluding fingers and thumb, Cocaine use, IV drug user Condition: Stable Disposition: HOME, SELF-CARE Additional Instructions: Cellulitis You have an infection of your skin and underlying soft tissues called cellulitis. This is due to bacteria, which can enter through any break in the skin, or even through an irritated hair follicle. Untreated, cellulitis will usually worsen. Antibiotics are required. Usually, warm packs or warm soaks, and elevation of the infected area are recommended. You should start getting better within 24 to 36 hours. Most infections respond quickly to the right medication. Follow-up care is important, however, to check for abscess (boil) formation, unsuspected foreign body, or resistant infection. If you develop fever, chills, or if the area of infection is becoming ra pidly more swollen or painful, call the doctor at once. Prescriptions: Cephalexin Monohydrate [Keflex 500 mg Capsule] 500 mg PO Q6H 5 Days capsule
== END 2019-09-17 06:58 | disposition home or self-care (01) ==
LOC: ER 02:17
DX: L03.114 Cellulitis of left upper limb (principal); F14.90 Cocaine use, unspecified, uncomplicated; R20.0 Anesthesia of skin; M79.89 Other specified soft tissue disorders; F17.200 Nicotine dependence, unspecified, uncomplicated
CPT/HCPCS: 99283; 36415; 85025; 80053; 73130; A9270

== ENCOUNTER 2019-09-20 11:27 | Emergency (ER) | payer MEDICARE, OTHER, MEDICAID ==
--- NOTE | 2019-09-20 12:36 | ER Document Report ---
ED Medical Screen (RME) - General Stated Complaint: PSYCH/ALCOHOL WITHDRAWL Time Seen by Provider: 09/20/19 12:31 Mode of Arrival: Ambulatory Information source: Patient Notes: 29-year-old female patient with past medical history of depression presenting to the emergency department with chief complaint of suicidal ideations and requesting detox from cocaine, meth and alcohol. Patient reports she injects the cocaine and meth. She states she feels depressed and hopeless and has thought about ending her life via a heroin overdose. She was taking antidepressant medications prescribed by someone in [place] however due to her transient lifestyle she has been a unable to keep up with this. Exam: Patient with a flat affect, alert, answering all questions appropriately. I have greeted and performed a rapid initial assessment of this patient. A comprehensive ED assessment and evaluation of the patient, analysis of test results and completion of the medical decision making process will be conducted by additional ED providers. I have specifically instructed the patient or family members with the patient to immediately return to any nursing staff should anything change in the patient's condition or with their chief complaint. TRAVEL OUTSIDE OF THE [place] IN LAST 30 DAYS: No - Related Data Allergies/Adverse Reactions: haloperidol [From Haldol] Allergy (Verified 07/31/18 12:29) loses time. haloperidol lactate [From Haldol] Allergy (Verified 07/31/18 12:29) loses time. zolpidem tartrate [From Ambien] Adverse Reaction (Verified 07/31/18 12:29) sleep walks Past Medical History Renal/ Medical History: Denies: Hx Peritoneal Dialysis Musculoskeltal Medical History: Reports Hx Musculoskeletal Deformity Psychiatric Medical History: Reports: Hx Anxiety, Hx Bipolar Disorder, Hx Depression, Hx Post Traumatic Stress Disorder, Hx Schizophrenia - Immunizations Immunizations up to date: Yes Hx Diphtheria, Pertussis, Tetanus Vaccination: Yes - unknown Physical Exam - Vital signs Vitals: Temp Pulse Resp BP Pulse Ox 97.8 F 81 16 102/64 100 09/20/19 12:09/20/19 12:26 09/20/19 12:09/20/19 12:09/20/19 12:26 Course - Vital Signs Vital signs: Temp Pulse Resp BP Pulse Ox 97.8 F 81 16 102/64 100 09/20/19 12:09/20/19 12:09/20/19 12:26 09/20/19 12:26 09/20/19 12:26
--- NOTE | 2019-09-20 13:55 | ER Document Report ---
ED General <ADELAIDE PETTY - Last Filed: 09/20/19 14:55> - General Mode of Arrival: Ambulatory Information source: Patient TRAVEL OUTSIDE OF THE [place] IN LAST 30 DAYS: No - HPI Onset: Other - over the last several days Onset/Duration: Gradual Quality of pain: No pain Severity: Moderate Associated symptoms: Other - Suicidal, Concern about her drug use Exacerbated by: Other - drug use Relieved by: Denies Similar symptoms previously: Yes - patient has had SI in the past. Patient says she has tried to OD on pills Recently seen / treated by doctor: Yes - patient was recently seen in the ER for hand swelling - Related Data Home Medications: Buspar, Abilify <JANNIE JEFFERSON - Last Filed: 09/20/19 15:15> - General Chief Complaint: Suicidal Ideation Stated Complaint: PSYCH/ALCOHOL WITHDRAWL Time Seen by Provider: 09/20/19 12:31 - HPI Notes: 29 year old female with a history of Depression, Anxiety, and Polysubstance Abuse (patient drinks daily and admits to cocaine and meth use) here for suicidal ideation. The patient says she has relapsed on cocaine and meth and she now is having thoughts of harming herself. The patient tells me she has tried to harm herself in the past by taking prescription pills. The patient says she thinks she would kill herself by ODing on heroine this time. The patient has no heroine at this time however (JANNIE JEFFERSON) - Related Data Allergies/Adverse Reactions: haloperidol [From Haldol] Allergy (Verified 07/31/18 12:29) loses time. haloperidol lactate [From Haldol] Allergy (Verified 07/31/18 12:29) loses time. zolpidem tartrate [From Ambien] Adverse Reaction (Verified 07/31/18 12:29) sleep walks Past Medical History - General Information source: Patient - Social History Smoking Status: Never Smoker Frequency of alcohol use: daily use Drug Abuse: Cocaine, Methamphetamine Lives with: Homeless Family History: Arthritis, DM, Hyperlipidemia, Hypertension, Other. denies: CAD, COPD, CVA, Malignancy, Thyroid Disfunction Patient has suicidal ideation: No Patient has homicidal ideation: No - Past Medical History Cardiac Medical History: Reports: None Pulmonary Medical History: Reports: None EENT Medical History: Reports: None Neurological Medical History: Reports: None Endocrine Medical History: Reports: None Renal/ Medical History: Reports: None. Denies: Hx Peritoneal Dialysis Malignancy Medical History: Reports: None GI Medical History: Reports: None Musculoskeletal Medical History: Reports Hx Musculoskeletal Deformity Psychiatric Medical History: Reports: Hx Anxiety, Hx Bipolar Disorder, Hx Depression, Hx Post Traumatic Stress Disorder, Hx Schizophrenia - Immunizations Immunizations up to date: Yes Hx Diphtheria, Pertussis, Tetanus Vaccination: Yes - unknown <MONTANA MINESJANNIE - Last Filed: 09/20/19 15:15> Review of Systems - Review of Systems Constitutional: No symptoms reported EENT: No symptoms reported Cardiovascular: No symptoms reported Respiratory: No symptoms reported Gastrointestinal: No symptoms reported Genitourinary: No symptoms reported Female Genitourinary: No symptoms reported Musculoskeletal: No symptoms reported Skin: No symptoms reported Hematologic/Lymphatic: No symptoms reported Neurological/Psychological: Depression, Suicidal ideation, Other - Drug and Alcohol Abuse <MONTANA MINESJANNIE - Last Filed: 09/20/19 15:15> Physical Exam <MONTANA MINESJANNIE - Last Filed: 09/20/19 15:15> - Vital signs Vitals: Temp Pulse Resp BP Pulse Ox 97.8 F 81 16 102/64 100 09/20/19 12:26 09/20/19 12:26 09/20/19 12:26 09/20/19 12:26 09/20/19 12:26 - Notes Notes: GENERAL: Well-appearing, well-nourished and in no acute distress. HEAD: Atraumatic, normocephalic. EYES: Pupils equal round and reactive to light, extraocular movements intact, sclera anicteric, conjunctiva are normal. ENT: TMs normal, nares patent, oropharynx clear without exudates. Moist mucous membranes. NECK: Normal range of motion, supple without lymphadenopathy or JVD. LUNGS: Breath sounds clear to auscultation bilaterally and equal. No wheezes rales or rhonchi. HEART: Regular rate and rhythm without murmurs, rubs or gallops. ABDOMEN: Soft, nontender, normoactive bowel sounds. No guarding, no rebound. No masses appreciated. EXTREMITIES: Normal range of motion, no pitting or edema. No clubbing or cyanosis. NEUROLOGICAL: Cranial nerves II through XII grossly intact. Normal speech, normal gait. PSYCH: Normal mood, flat affect. Patient endorses some SI and says she is depressed. SKIN: Warm, Dry, normal turgor, no rashes or lesions noted. (JANNIE JEFFERSON) Course - Laboratory Result Diagrams: 09/20/19 14:10 09/20/19 14:10 <ADELAIDE PETTY - Last Filed: 09/20/19 14:55> - Laboratory Result Diagrams: 09/20/19 14:10 09/20/19 14:10 <JANNIE JEFFERSON - Last Filed: 09/20/19 15:15> - Re-evaluation Re-evalutation: 09/20/19 14:43 Psych saw the patient and they do not think the patient meets inpatient psych criteria. Psych is going to try and get the patient to [facility] for help with Drug R ehab. Patient is not showing any signs of alcohol withdrawal here in the ER now. The patient is in agreement with the plan to get help with drug use problem as this seems to be the root cause of her depression and SI 09/20/19 15:13 Patient's was alcohol and cocaine positive. Will DC patient to a rehab facility (either [facility] or one in [place] has been to before). (JANNIE JEFFERSON) - Vital Signs Vital signs: Temp Pulse Resp BP Pulse Ox 97.8 F 81 16 102/64 100 09/20/19 12:26 09/20/19 12:26 09/20/19 12:26 09/20/19 12:26 09/20/19 12:26 - Laboratory Laboratory results interpreted by me: 09/20/19 09/20/19 09/20/19 14:10 14:10 14:10 MCV 75 L MCH 25.4 L Urine Urobilinogen 4.0 H Salicylates 1.0 L Acetaminophen < 10 L Discharge <ADELAIDE PETTY - Last Filed: 09/20/19 14:55> <JANNIE JEFFERSON - Last Filed: 09/20/19 15:15> - Discharge Clinical Impression: Polysubstance abuse Clinical Impression: (Ruled Out): Polysubstance (excluding opioids) dependence Condition: Stable Disposition: HOME, SELF-CARE Instructions: Chronic Alcoholism ([facility]), Drug Toxicity ([facility]) Additional Instructions: You have been evaluated both medical and behavioral teams and been deemed appropriate for discharge. You have identified wanting to go to a detox facility. You are highly encouraged to follow through with this plan of care. AT ANY TIME, IF YOUR SYMPTOMS CHANGE SIGNIFICANTLY OR WORSEN OR YOU DEVELOP NEW SYMPTOMS, RETURN TO THE EMERGENCY DEPARTMENT IMMEDIATELY FOR RE-EVALUATION.
--- NOTE | 2019-09-20 14:10 | PSYCHOLOGICAL NOTE ---
Psych Note - Psych Note Date seen by psych provider: 09/20/19 Time seen by psych provider: 13:25 Psych Note: Reason For Consult:Suicidal ideation and Detox Consent Permissions:none provided Patient reports her ex- dropped her off here because she wants to get a ssistance for her drinking, drug use and suicidal thoughts. She states that she was having suicidal thoughts for couple weeks now because she has been trying to get sober; "I do not have anything to live for, it seems like a waste trying to get sober." Patient states that she was successfully sober for about 6 months however "life is boring" which resulted in her relapsing. Patient states that she was in [facility] a couple weeks ago and is hoping to get back into treatment. When asking for clarification on her suicidal thoughts she states she has them "all the time and cannot get rid of thoughts." She states that she has a history of engaging in self-harm i.e. cutting. She states the last time she engaged in this behavior was 4 years ago. She denies any recent cutting even once experiencing suicidal ideation. She reports that she does not have therapy or current provider. When asked about medication she takes she states that she was receiving Abilify and BuSpar from a provider in [place]. She was living in [place] in an [place] house however when she relapsed she was kicked out. Patient came down to the local area because she reports that she used to live in this area. Patient states that she drinks daily and approximately "2 bottles of anything." She reports last time she drank was today in the morning and states it was a half a bottle of rum. Last use of cocaine was yesterday and meth was a couple days ago. She reports the first use of meth and cocaine was approximately 2 to 3 years ago. Patient identifies starting to drink heavily in her mid 20s. Patient identifies passive suicidal ideation of "taking a bunch of heroin to like that." When asked what "that means she reports she is heard that heroin is really strong. She reports that she is never used heroin; she does not explain why she would not use her normal drugs that she would have immediate access to. Patient was asked how she normally uses in which she identifies "shooting up." When asked where she states her arms; clinician notes patient does have some ko on her inner elbow however look as if some are scratches and possible IV sites. Patient confirms she is homeless. Patient disclosed to her mental health diagnosis is bipolar. When asked if she had any other medical diagnoses she reported schizoaffective. Patient is alert and orientated to person, place, time and circumstance. Mood is euthymic with congruent affect. Patient endorses passive suicidal ideation ie no plans means or intent. She denies homicidal ideation. Delusions are absent and behaviors congruent with an intact reality based presentation ie organized and linear thought process. Eye contact is well-maintained. Conversational speech is within normal rate, tone and prosody. Intellectual abilities appear to be within the low average range. Attention and concentration are good. Insight, judgment, impulse control are fair. Clinician received a phone call from [facility]. They report they are willing to take the patient but are unable to provided transportation. The patient identified that her ex- may be able to assist with transport. Impression\\plan: Patient is cleared from acute psychiatric services. Patient does not meet IVC criteria per [place] GS 122C. Patient identifies passive suicidal ideation i.e. no plans means or intent which seems address electrically related to her drug and alcohol use. She is requesting assistance in obtaining sobriety. Patient is recommended to follow-up with rehab after detox. Patient made contact with the [facility] and while they are unable to provide transportation the patient feels that her ex- may be able to assist her in getting down there. Patient is encouraged to follow through with this voluntary placement. Dr. Tavares was consulted to care management of this patient; attending physicians in agreement with recommendations and disposition.
[2019-09-20 14:30] LABS: ABSOLUTE BASOPHILS # (AUTO) 0.1 10^3/uL (0.0-0.2); ABSOLUTE EOSINOPHILS # (AUTO) 0.1 10^3/uL (0.0-0.6); ABSOLUTE LYMPHOCYTES (AUTO) 2.5 10^3/uL (0.5-4.7); ABSOLUTE MONOCYTES (AUTO) 0.6 10^3/uL (0.1-1.4); APPEARANCE,URINE SLIGHTLY-CLOUDY; BILIRUBIN,URINE NEGATIVE (NEGATIVE); COLOR,URINE YELLOW; EOSINOPHILS % (AUTO) 1.5 % (0-6); GLUCOSE, URINE NEGATIVE (NEGATIVE); HEMATOCRIT 37.5 % (36.0-47.0); HEMOGLOBIN 12.8 g/dL (12.0-15.5); KETONES,URINE NEGATIVE (NEGATIVE); LEUKOCYTE ESTERASE,URINE NEGATIVE (NEGATIVE); LYMPHOCYTES % (AUTO) 29.8 % (13-45); MEAN CORPUSCULAR HEMOGLOBIN 25.4 pg (27.0-33.4); MEAN CORPUSCULAR HGB CONC 34.1 g/dL (32.0-36.0); MEAN CORPUSCULAR VOLUME 75 fl (80-97); MONOCYTES % (AUTO) 7.7 % (3-13); NITRITE,URINE NEGATIVE (NEGATIVE); PLATELET COUNT 359 10^3/uL (150-450); PROTEIN,URINE NEGATIVE (NEGATIVE); RED BLOOD COUNT 5.02 10^6/uL (3.72-5.28); TOTAL CELLS COUNTED % (AUTO) 100 %; WHITE BLOOD COUNT 8.4 10^3/uL (4.0-10.5)
[2019-09-20 14:43] LABS: URINE BARBITURATES SCREEN NEGATIVE; URINE BENZODIAZEPINES SCREEN NEGATIVE; URINE MARIJUANA (THC) SCREEN NEGATIVE; URINE PHENCYCLIDINE SCREEN NEGATIVE
[2019-09-20 14:48] LABS: ALBUMIN 4.2 g/dL (3.5-5.0); ALCOHOL 13 mg/dL (NONE DETECTED); ALKALINE PHOSPHATASE 119 U/L (38-126); ANION GAP 11 (5-19); ASPARTATE AMINO TRANSFERASE 34 U/L (14-36); BILIRUBIN,DIRECT 0.3 mg/dL (0.0-0.4); BILIRUBIN,TOTAL 0.3 mg/dL (0.2-1.3); BLOOD UREA NITROGEN 11 mg/dL (7-20); CALCIUM 9.9 mg/dL (8.4-10.2); CARBON DIOXIDE 26 mmol/L (22-30); CHLORIDE 105 mmol/L (98-107); GLUCOSE 82 mg/dL (75-110); TOTAL PROTEIN 7.7 g/dL (6.3-8.2)
[2019-09-20 14:49] LABS: URINE METHADONE SCREEN NEGATIVE
[2019-09-20 14:50] LABS: ACETAMINOPHEN < 10 ug/mL (10-30)
[2019-09-20 14:57] LABS: URINE COCAINE SCREEN UNCONFIRMED POSITIVE
[2019-09-20 19:47] VITALS: BP 104/63
== END 2019-09-20 19:40 | disposition home or self-care (01) ==
LOC: ER 11:27
DX: R45.851 Suicidal ideations (principal); F19.10 Other psychoactive substance abuse, uncomplicated; F32.9 Major depressive disorder, single episode, unspecified; Z59.0 Homelessness
CPT/HCPCS: 36415; 80053; 80307; 81001; 85025; 99285